=== PATIENT | male | born 1975 | race Caucasian/White ===

== ENCOUNTER 2020-01-05 11:52 | Outpatient (CLI) | payer OTHER, SELFPAY ==
[2020-01-08 12:40] LABS: Vitamin B1 12 nmol/L (8-30)
[2020-01-08 13:53] LABS: Alpha-Tocopherol 9.2 mg/L (5.7-19.9); Beta-Gamma Tocopherol 1.6 mg/L (<=4.3); Vitamin A 49 mcg/dL (38-98)
== END 2020-01-05 11:53 | disposition home or self-care (01) ==
LOC: ANHLAB 11:54
PROVIDERS: PCP Family Medicine; Visit Provider Family Medicine
DX: H53 Visual disturbances (principal)
CPT/HCPCS: 36415; 84207; 84425; 84446; 84590

== ENCOUNTER 2020-02-05 09:04 | Outpatient (CLI) | payer OTHER, SELFPAY ==
[2020-02-05 09:22] LABS: Basophils Absolute Auto 0.1 K/mm3 (0.0-0.1); Eosinophils Absolute Auto 0.6 K/mm3 (0-0.3); Eosinophils Percent Auto 7.3 % (0-4.4); Hemoglobin 15.2 g/dL (14.0-18.0); Immature Granulocyte Absolute 0.03 K/mm3 (0.00-0.031); Immature Granulocyte Percent A 0.4 % (0-0.5); Lymphocytes Percent Auto 33.2 % (18.3-44.2); Mean Corpuscular Hemoglobin 27.5 pg (26-34); Mean Corpuscular Volume 83.3 fl (80-100); Mean Platelet Volume 8.5 fl (7.4-10.4); Monocytes Absolute Auto 0.6 K/mm3 (0.1-0.6); Monocytes Percent Auto 7.8 % (2.6-8.5); Neutrophils Absolute Auto 3.9 K/mm3 (1.3-6.7); Neutrophils Percent Auto 50.3 % (45.5-73.1); Platelet Count Result 264 k/mm3 (150-375); Red Blood Count 5.52 M/mm3 (4.6-6.20); Red Cell Distribution Width 14.7 % (11.5-14.5); White Blood Count 7.8 K/mm3 (4.5-10.0)
[2020-02-05 09:35] LABS: Alanine Aminotransferase 23 U/L (4-50); Albumin Level 3.9 g/dL (3.5-5.1); Alkaline Phosphatase 73 U/L (38-126); Anion Gap 5 mmol/L (8-16); Aspartate Amino Transferase 28 U/L (17-59); Bilirubin,Total 0.2 mg/dL (0.2-1.3); Blood Urea Nitrogen 12 mg/dL (9-20); Calcium 8.8 mg/dL (8.4-10.2); Carbon Dioxide 28 mmol/L (22-30); Chloride 105 mmol/L (98-107); Estimated Glomerular Filt Rate > 60; Glucose 96 mg/dL (75-110); Potassium 3.8 mmol/L (3.4-5.0); Sodium 138 mmol/L (137-145)
== END 2020-02-05 09:05 | disposition home or self-care (01) ==
LOC: ANHLAB 09:05
PROVIDERS: PCP Family Medicine; Visit Provider Family Medicine
DX: K51.80 Other ulcerative colitis without complications (principal)
CPT/HCPCS: 36415; 80053; 85025

== ENCOUNTER 2020-02-21 09:55 | Outpatient (CLI) | payer OTHER, SELFPAY ==
[2020-02-21 10:59] LABS: CRP 0.6 mg/dL (<1.0)
[2020-02-21 11:09] LABS: Erythrocyte Sedimentation Rate 1 mm/hr (0-20)
[2020-02-21 11:43] LABS: Hepatitis B Surface Antigen Negative (Negative)
[2020-02-21 12:00] LABS: Hepatitis B Surface Anti Res Negative
[2020-02-24 21:16] LABS: Hepatitis B Core Ab Total Nonreactive (Nonreactive)
[2020-02-25 21:00] LABS: NIL 0.01 IU/mL; Quantiferon TB Plus, 1T NEGATIVE (NEGATIVE)
[2020-03-03 19:22] LABS: TPMT Activity 8
== END 2020-02-21 09:56 | disposition home or self-care (01) ==
PROVIDERS: Visit Provider Internal Medicine Gastroenterology
DX: K51.80 Other ulcerative colitis without complications (principal)
CPT/HCPCS: 36415; 82657; 85652; 86140; 86480; 86704; 86706; 87340

== ENCOUNTER 2020-05-18 00:59 | Outpatient (CLI) | payer OTHER, SELFPAY ==
[2020-05-18 20:15] LABS: SARS-CoV-2 RNA PCR Negative
== END 2020-05-18 01:00 | disposition home or self-care (01) ==
LOC: ANHCOVIDDT 01:00
PROVIDERS: Visit Provider Internal Medicine Gastroenterology
DX: Z01.818 Encounter for other preprocedural examination (principal); Z20.828 Contact with and (suspected) exposure to other viral communicable diseases
CPT/HCPCS: 87635; C9803; U0003

== ENCOUNTER 2020-05-21 01:22 | Day surgery (SDC) | payer OTHER, SELFPAY ==
[2020-05-15 11:29] VITALS: BMI 41.8
[2020-05-21 07:07] VITALS: BP 165/97; PULSE 86; RESP 22; TEMP 36.4; O2SAT 97
[2020-05-21] MEDS: LACTATED RINGERS 1,000 ML 150 ML IV CONT (07:21)
--- NOTE | 2020-05-21 07:33 | WPDANESEPPF ---
Anes - Initial Pre Proc Eval Procedure: Operation Date: 05/21/20 08:30 Proposed Procedures p Screening Colonoscopy - Rao Bean MD Date/Time: 05/21/20 07:33 Surgeon: Rao Bean MD Pre Op Diagnosis: Neoplasm Screening Patient Data Age: 44 Gender: M Height: 6 ft Weight: 180.4 kg Last Vital Signs Temp 36.4 C 05/21/20 07:07 Pulse 86 05/21/20 07:07 Resp 22 H 05/21/20 07:07 BP 165/97 H 05/21/20 07:07 Pulse Ox 97 05/21/20 07:07 Allergies Allergy/AdvReac Type Severity Reaction Status Date / Time No Known Allergies Allergy Verified 05/21/20 07:06 Home Medications Medication Instructions Recorded Confirmed Type sulfasalazine 500 mg tablet 1.5 gm PO BID #180 tablet 02/05/20 05/21/20 Rx furosemide 40 mg tablet 40 mg PO QAM #30 tablet 04/09/20 05/15/20 Rx [id number]-ywbkunvdogydm-zsvaujrf See Rx Instructions .ROUTE 05/13/20 05/15/20 Rx 50 mg-300 mg-40 mg capsule .COMPLEX #30 cap amlodipine 5 mg tablet See Rx Instructions .ROUTE 05/16/20 05/21/20 Rx .COMPLEX #90 tablet tizanidine 4 mg tablet See Rx Instructions .ROUTE 05/20/20 05/21/20 Rx .COMPLEX #20 tablet Patient hx anesthesia problems: none Family hx anesthesia problems: none PMFSH Past Medical History Medical History Knee osteoarthritis Red color blindness Screening for prostate cancer Family History Family History Grandparent Family history of coronary artery disease Mother Family history of coronary artery disease Other Asthma Depression Family history of arthritis Family history of heart disease in male family member before age 55 Social History Social History Smoking status: Never smoker Second hand tobacco smoke exposure: No Alcohol intake: current Substance use type: does not use Living arrangements: with family Spiritual care concerns: No Anes - Eval Final PreProcedure Day of Procedure 05/21/20 07:33 Patient weight: morbidly obese Heart: regular rate and rhythm Lungs: clear to auscultation Airway: Mallampati scale class II Neurological: alert and oriented Last oral intake: >/= 8 hours ASA classification: III Emergent: no Anesthetic plan: proceed Anesthesia type and monitoring: general GIVS and standard monitoring Informed Consent: The patient's anesthetic plan and its attendant risks and benefits were discussed with the patient/family/POA. Questions were solicited and answers provided to the satisfaction of the patient/family/POA.
--- NOTE | 2020-05-21 07:56 | PM.HPGS ---
History of Present Illness History of Present Illness Consent: Risks, benefits, and alternatives have been discussed and questions answered. Patient agrees to proceed with procedure. Chief complaint: Neoplasm Screening Narrative: Earl Santo is a 44 year old male with pancolitis since 14 yo, he just ran out of sulfasalazine but denies active symptoms now. Review of Systems Constitutional: Constitutional: Denies headache(s) and Denies weakness Eyes: Eyes: Denies blurry vision ENT: Reports Normal hearing present, Denies headache(s) and Denies neck pain Cardiovascular: Cardiovascular: Denies chest pain and Denies dyspnea Respiratory: Respiratory: Denies dyspnea Gastrointestinal: Gastrointestinal: Reports no additional gastrointestinal complaints Genitourinary: Genitourinary: Denies dysuria Musculoskeletal: Musculoskeletal: Denies neck pain Integumentary/Breasts: Skin/Breast: Denies dry skin Neurologic: Reports Normal hearing present, Denies headache(s) and Denies weakness Psychiatric: Psychiatric: Denies anxiety Endocrine: Endocrine: Denies change in body appearance Hematologic/Lymphatic: Hematologic/Lymphatic: Denies easy bleeding Allergic/Immunologic: Allergic/Immunologic: Denies urticaria PMFSH Past Medical History Medical History Knee osteoarthritis Red color blindness Screening for prostate cancer Family History Family History Grandparent Family history of coronary artery disease Mother Family history of coronary artery disease Other Asthma Depression Family history of arthritis Family history of heart disease in male family member before age 55 Social History Social History Smoking status: Never smoker Second hand tobacco smoke exposure: No Alcohol intake: current Substance use type: does not use Living arrangements: with family Spiritual care concerns: No Meds Home Medications and Allergies Home Medications Medication Instructions Recorded Confirmed Type sulfasalazine 500 mg tablet 1.5 gm PO BID #180 tablet 02/05/20 05/21/20 Rx furosemide 40 mg tablet 40 mg PO QAM #30 tablet 04/09/20 05/15/20 Rx [id number]-hgdpssbzkhfvl-prlectew See Rx Instructions .ROUTE 05/13/20 05/15/20 Rx 50 mg-300 mg-40 mg capsule .COMPLEX #30 cap amlodipine 5 mg tablet See Rx Instructions .ROUTE 05/16/20 05/21/20 Rx .COMPLEX #90 tablet tizanidine 4 mg tablet See Rx Instructions .ROUTE 05/20/20 05/21/20 Rx .COMPLEX #20 tablet Allergies Allergy/AdvReac Type Severity Reaction Status Date / Time No Known Allergies Allergy Verified 05/21/20 07:06 Vital Signs Vital Signs - 24 hr 05/21/20 07:07 Temperature 97.6 F Pulse Rate 86 Respiratory Rate 22 H Blood Pressure 165/97 H Pulse Oximetry 97 Exam Const: General: comfortable and no acute distress HENMT: General nose exam: Normal nares present Eyes: General: appearance normal, both eyes and all related structures Neck: Neck: no JVD Resp: Auscultation: clear to auscultation bilaterally Cardio: Rate: regular rate Rhythm: regular rhythm GI: Inspection: non-distended GI Palp: Yes Soft to palpation Skin: General skin exam: normal color Neuro: General: gait normal Speech: normal speech Extrem: General: normal to inspection Psych: Mental Status: mental status grossly normal Assessment and Plan Assessment and plan (1) Ulcerative colitis: Qualifiers: Ulcerative colitis location: other ulcerative colitis Digestive disease complication type: without complication Qualified Code(s): K51.80 - Other ulcerative colitis without complications Code(s): K51.90 - Ulcerative colitis, unspecified, without complications Status: Acute Assessment and Plan: colonoscopy with biopsies to assess activity score and dysplasia, etc
[2020-05-21 08:18] VITALS: BP 116/72; PULSE 73; RESP 19; O2SAT 97
[2020-05-21 08:28] VITALS: BP 118/81; PULSE 87; RESP 22; O2SAT 95
[2020-05-21 08:38] VITALS: BP 119/74; PULSE 78; RESP 16; O2SAT 97
== END 2020-05-21 08:47 | disposition home or self-care (01) ==
PROVIDERS: Visit Provider Internal Medicine Gastroenterology
PROC: 0DJD8ZZ Inspection of Lower Intestinal Tract, Via Natural or Artificial Opening Endoscopic (ICD-10-PCS; CPT 45378; principal; 2020-05-21 08:30)
DX: Z12.11 Encounter for screening for malignant neoplasm of colon (principal); K51.00 Ulcerative (chronic) pancolitis without complications; K63.5 Polyp of colon; E66.01 Morbid (severe) obesity due to excess calories; K64.8 Other hemorrhoids; Z68.43 Body mass index [BMI] 50.0-59.9, adult; M17.10 Unilateral primary osteoarthritis, unspecified knee
CPT/HCPCS: 45380; 45385; 88305; J2704; J7120

== ENCOUNTER 2020-09-12 09:30 | Outpatient (CLI) | payer OTHER, SELFPAY ==
[2020-09-12 09:52] LABS: Hematocrit 47.8 % (42.0-52.0); Hemoglobin 16.1 g/dL (14.0-18.0); Mean Corpuscular HGB Conc 33.7 g/dl (32-36); Mean Corpuscular Hemoglobin 29.2 pg (26-34); Mean Corpuscular Volume 86.6 fl (80-100); Mean Platelet Volume 8.2 fl (7.4-10.4); Platelet Count Result 232 k/mm3 (150-375); Red Blood Count 5.52 M/mm3 (4.6-6.20); White Blood Count 6.3 K/mm3 (4.5-10.0)
[2020-09-12 10:14] LABS: Alanine Aminotransferase 19 U/L (4-50); Albumin Level 4.2 g/dL (3.5-5.1); Alkaline Phosphatase 81 U/L (38-126); Anion Gap 6 mmol/L (8-16); Aspartate Amino Transferase 26 U/L (17-59); Bilirubin,Total 0.4 mg/dL (0.2-1.3); Blood Urea Nitrogen 15 mg/dL (9-20); CRP 1.1 mg/dL (<1.0); Calcium 9.2 mg/dL (8.4-10.2); Carbon Dioxide 31 mmol/L (22-30); Chloride 102 mmol/L (98-107); Estimated Glomerular Filt Rate 55; Glucose 120 mg/dL (75-110); Potassium 3.6 mmol/L (3.4-5.0); Sodium 139 mmol/L (137-145)
[2020-09-12 10:17] LABS: Erythrocyte Sedimentation Rate 13 mm/hr (0-20)
== END 2020-09-12 09:31 | disposition home or self-care (01) ==
PROVIDERS: Visit Provider Internal Medicine Gastroenterology
DX: K51.80 Other ulcerative colitis without complications (principal)
CPT/HCPCS: 36415; 80053; 85027; 85652; 86140

== ENCOUNTER 2020-10-28 14:29 | Outpatient (CLI) | payer OTHER, SELFPAY ==
[2020-10-28 15:33] LABS: Hematocrit 46.6 % (42.0-52.0); Hemoglobin 15.5 g/dL (14.0-18.0); Mean Corpuscular HGB Conc 33.3 g/dl (32-36); Mean Corpuscular Hemoglobin 28.5 pg (26-34); Mean Corpuscular Volume 85.8 fl (80-100); Mean Platelet Volume 8.7 fl (7.4-10.4); Platelet Count Result 209 k/mm3 (150-375); Red Blood Count 5.43 M/mm3 (4.6-6.20); Red Cell Distribution Width 14.3 % (11.5-14.5); White Blood Count 6.2 K/mm3 (4.5-10.0)
[2020-10-28 15:47] LABS: Anion Gap 4 mmol/L (8-16); Blood Urea Nitrogen 14 mg/dL (9-20); Calcium 9.1 mg/dL (8.4-10.2); Carbon Dioxide 32 mmol/L (22-30); Chloride 102 mmol/L (98-107); Estimated Glomerular Filt Rate 59; Glucose 101 mg/dL (75-110); Magnesium 1.9 mg/dL (1.6-2.3); Potassium 4.1 mmol/L (3.4-5.0); Sodium 138 mmol/L (137-145)
[2020-10-28 15:55] LABS: NT Pro B Type Natriuretic Pept 242 pg/mL (5-100)
== END 2020-10-28 14:30 | disposition home or self-care (01) ==
PROVIDERS: Visit Provider Family Medicine
DX: I50.32 Chronic diastolic (congestive) heart failure (principal)
CPT/HCPCS: 36415; 80048; 83735; 83880; 85027

== ENCOUNTER 2021-03-17 09:38 | Outpatient (CLI) | payer OTHER, SELFPAY ==
[2021-03-17 09:51] LABS: Hematocrit 46.4 % (42.0-52.0); Hemoglobin 15.2 g/dL (14.0-18.0); Mean Corpuscular HGB Conc 32.8 g/dl (32-36); Mean Corpuscular Hemoglobin 29.3 pg (26-34); Mean Corpuscular Volume 89.6 fl (80-100); Mean Platelet Volume 8.3 fl (7.4-10.4); Platelet Count Result 233 k/mm3 (150-375); Red Blood Count 5.18 M/mm3 (4.6-6.20); Red Cell Distribution Width 13.9 % (11.5-14.5); White Blood Count 6.6 K/mm3 (4.5-10.0)
[2021-03-17 10:09] LABS: Alanine Aminotransferase 20 U/L (4-50); Albumin Level 4.2 g/dL (3.5-5.1); Alkaline Phosphatase 70 U/L (38-126); Anion Gap 8 mmol/L (8-16); Aspartate Amino Transferase 24 U/L (17-59); Bilirubin,Total 0.4 mg/dL (0.2-1.3); Blood Urea Nitrogen 14 mg/dL (9-20); CRP 1.3 mg/dL (<1.0); Calcium 9.2 mg/dL (8.4-10.2); Carbon Dioxide 27 mmol/L (22-30); Chloride 103 mmol/L (98-107); Estimated Glomerular Filt Rate > 60; Glucose 112 mg/dL (65-110); Potassium 3.7 mmol/L (3.4-5.0); Sodium 138 mmol/L (137-145)
[2021-03-17 10:26] LABS: Erythrocyte Sedimentation Rate 14 mm/hr (0-20)
== END 2021-03-17 09:39 | disposition home or self-care (01) ==
LOC: ANHLAB 09:40
PROVIDERS: Visit Provider Nurse Practitioner Family
DX: K51.80 Other ulcerative colitis without complications (principal)
CPT/HCPCS: 36415; 80053; 85027; 85652; 86140

== ENCOUNTER → 2021-04-05 00:47 | Outpatient (CLI) | payer OTHER, SELFPAY ==
[2021-04-05 18:23] LABS: SARS-CoV-2 RNA PCR Negative
== END ==
PROVIDERS: Visit Provider Internal Medicine Gastroenterology
DX: Z01.812 Encounter for preprocedural laboratory examination (principal); Z20.822 Contact with and (suspected) exposure to COVID-19
CPT/HCPCS: C9803; U0003; U0005

== ENCOUNTER 2021-04-08 02:18 | Day surgery (SDC) | payer OTHER, SELFPAY ==
[2021-03-21 13:41] VITALS: BMI 58.6
[2021-04-08 09:12] VITALS: BP 170/96; PULSE 79; RESP 18; TEMP 36.3; O2SAT 96; BMI 56.7
[2021-04-08] MEDS: LACTATED RINGERS 1,000 ML 150 ML IV CONT (09:24)
--- NOTE | 2021-04-08 09:41 | WPDHPUPDATE1 ---
History and Physical Update Update Date/Time: 04/08/21 09:41 History and Physical has been reviewed, including an updated exam of the patient. There are NO changes in the patient's condition. Risks, benefits, and alternatives have been discussed and questions answered. Patient agrees to proceed with procedure.
--- NOTE | 2021-04-08 09:49 | WPDANESEPPF ---
Anes - Initial Pre Proc Eval Procedure: Operation Date: 04/08/21 10:30 Proposed Procedures p Colonoscopy - Rao Bean MD Date/Time: 04/08/21 09:49 Surgeon: Rao Bean MD Pre Op Diagnosis: ulcerative colitis Patient Data Age: 45 Gender: M Height: 1.83 m Weight: 189.7 kg Last Vital Signs Temp 36.3 C L 04/08/21 09:12 Pulse 79 04/08/21 09:12 Resp 18 04/08/21 09:12 BP 170/96 H 04/08/21 09:12 Pulse Ox 96 04/08/21 09:12 Allergies Allergy/AdvReac Type Severity Reaction Status Date / Time No Known Allergies Allergy Verified 04/08/21 09:10 Home Medications Medication Instructions Recorded Confirmed Type sulfasalazine 500 mg tablet 1.5 g PO BID #180 tablet 05/21/20 04/08/21 Rx furosemide 40 mg tablet 40 mg PO QAM #30 tablet 12/19/20 04/08/21 Rx tizanidine 4 mg tablet See Rx Instructions .ROUTE 12/19/20 04/08/21 Rx .COMPLEX #60 tablet amlodipine 5 mg tablet See Rx Instructions .ROUTE 02/11/21 04/08/21 Rx .COMPLEX #90 tablet bvpydulruw-klpbysyrlikdd-fvykzkuk See Rx Instructions .ROUTE 03/07/21 04/08/21 Rx 50 mg-300 mg-40 mg capsule .COMPLEX #30 cap omeprazole 20 mg capsule,delayed 20 mg PO DAILY #30 cap 03/17/21 04/08/21 Rx release Patient hx anesthesia problems: none Family hx anesthesia problems: none Results Review: All pre-operative results and documents have been reviewed as part of the pre-operative evaluation. [facility] Past Medical History Medical History (Updated 04/08/21 @ 09:52 by Erlin Jacome MD) Anxiety CAD (coronary artery disease) Choroidal neovascular membrane of right eye Chronic diastolic congestive heart failure Essential (primary) hypertension GERD (gastroesophageal reflux disease) Knee osteoarthritis Morbid obesity Obesity, morbid, BMI 50 or higher Red color blindness Screening for prostate cancer Ulcerative colitis Family History Family History Grandparent Family history of coronary artery disease Mother Family history of coronary artery disease COPD (chronic obstructive pulmonary disease) Bipolar 1 disorder Hypertension Father Acute myocardial infarction Sibling No problems noted. Other Asthma Depression Family history of arthritis Family history of heart disease in male family member before age 55 Social History Social History Second hand tobacco smoke exposure: Yes Alcohol intake: current Substance use: never Substance use type: does not use Gender identity (if verbalized by the patient): Male Spiritual care concerns: No Anes - Eval Final PreProcedure Day of Procedure 04/08/21 09:49 Patient weight: super morbidly obese Heart: regular rate and rhythm Lungs: clear to auscultation and normal air movement Airway: Mallampati scale class II Neurological: alert and oriented Last oral intake: >/= 8 hours ASA classification: IV Emergent: no Anesthetic plan: proceed Anesthesia type and monitoring: general GIVS Results Review: All pre-operative results and documents have been reviewed as part of the pre-operative evaluation. Informed Consent: The patient's anesthetic plan and its attendant risks and benefits were discussed with the patient/family/POA. Questions were solicited and answers provided to the satisfaction of the patient/family/POA.
[2021-04-08 10:21] VITALS: BP 138/94; PULSE 72; RESP 15; O2SAT 96
[2021-04-08 10:31] VITALS: BP 140/97; PULSE 74; RESP 18; O2SAT 97
[2021-04-08 10:41] VITALS: BP 139/96; PULSE 72; RESP 16; O2SAT 95
== END 2021-04-08 10:49 | disposition home or self-care (01) ==
PROVIDERS: Visit Provider Internal Medicine Gastroenterology
PROC: 0DJD8ZZ Inspection of Lower Intestinal Tract, Via Natural or Artificial Opening Endoscopic (ICD-10-PCS; CPT 45378; principal; 2021-04-08 10:30)
DX: K51.00 Ulcerative (chronic) pancolitis without complications (principal); K64.8 Other hemorrhoids; K21.9 Gastro-esophageal reflux disease without esophagitis; K52.89 Other specified noninfective gastroenteritis and colitis; F41.9 Anxiety disorder, unspecified; I25.10 Atherosclerotic heart disease of native coronary artery without angina pectoris; I11.0 Hypertensive heart disease with heart failure; I50.9 Heart failure, unspecified; E66.01 Morbid (severe) obesity due to excess calories; Z68.43 Body mass index [BMI] 50.0-59.9, adult; K63.5 Polyp of colon
CPT/HCPCS: 45380; 88305; J7120; Q9968

== ENCOUNTER 2021-05-06 18:11 | Outpatient (CLI) | payer OTHER, SELFPAY ==
--- NOTE | ~2021-05-06 | XR_ITS ---
XR hip BI 2V w AP pelvis 05/06/2021 18:39 Indication: Hip pain Procedure: AP pelvis and 3 views each Comparison: No prior studies for comparison. Findings: There is mild right and moderate left osteoarthritis of the hips. No fracture, subluxation or dislocation. Pelvic rings are intact. Sacral foramen are symmetric. Impression: 1: Bilateral osteoarthritis of the hips, left greater than right. Reviewed, dictated and finalized at location B. 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
== END 2021-05-06 18:12 | disposition home or self-care (01) ==
LOC: ANHIMG 18:17
PROVIDERS: PCP Family Medicine; Visit Provider Family Medicine
DX: M16.0 Bilateral primary osteoarthritis of hip (principal)
CPT/HCPCS: 73521

== ENCOUNTER 2021-09-30 14:22 | Outpatient (CLI) | payer OTHER, SELFPAY ==
[2021-09-30 15:22] LABS: Hematocrit 47.3 % (42.0-52.0); Hemoglobin 15.6 g/dL (14.0-18.0); Mean Corpuscular Hemoglobin 27.7 pg (26-34); Mean Platelet Volume 8.3 fl (7.4-10.4); Platelet Count Result 186 k/mm3 (150-375); Red Blood Count 5.63 M/mm3 (4.6-6.20); Red Cell Distribution Width 15.5 % (11.5-14.5); White Blood Count 5.5 K/mm3 (4.5-10.0)
[2021-09-30 15:35] LABS: Alanine Aminotransferase 25 U/L (4-50); Albumin Level 4.1 g/dL (3.5-5.1); Alkaline Phosphatase 85 U/L (38-126); Anion Gap 5 mmol/L (8-16); Aspartate Amino Transferase 31 U/L (17-59); Bilirubin,Total 0.3 mg/dL (0.2-1.3); Blood Urea Nitrogen 15 mg/dL (9-20); Calcium 8.6 mg/dL (8.4-10.2); Carbon Dioxide 29 mmol/L (22-30); Chloride 102 mmol/L (98-107); Estimated Glomerular Filt Rate > 60; Glucose 107 mg/dL (65-110); Potassium 3.5 mmol/L (3.4-5.0); Sodium 136 mmol/L (137-145)
[2021-09-30 15:49] LABS: Erythrocyte Sedimentation Rate 3 mm/hr (0-20)
== END 2021-09-30 14:23 | disposition home or self-care (01) ==
LOC: ANHLAB 14:24
PROVIDERS: PCP Family Medicine; Visit Provider Internal Medicine Gastroenterology
DX: K51.80 Other ulcerative colitis without complications (principal)
CPT/HCPCS: 36415; 80053; 85027; 85652; 86140

== ENCOUNTER 2021-10-30 15:05 | Outpatient (CLI) | payer OTHER, SELFPAY ==
[2021-10-30 16:12] LABS: Hematocrit 48.3 % (42.0-52.0); Mean Corpuscular HGB Conc 33.1 g/dl (32-36); Mean Corpuscular Hemoglobin 28.4 pg (26-34); Mean Corpuscular Volume 85.8 fl (80-100); Mean Platelet Volume 8.7 fl (7.4-10.4); Platelet Count Result 187 k/mm3 (150-375); Red Blood Count 5.63 M/mm3 (4.6-6.20); Red Cell Distribution Width 16.3 % (11.5-14.5); White Blood Count 5.5 K/mm3 (4.5-10.0)
[2021-10-30 16:59] LABS: Anion Gap 6 mmol/L (8-16); Blood Urea Nitrogen 15 mg/dL (9-20); Calcium 8.4 mg/dL (8.4-10.2); Carbon Dioxide 27 mmol/L (22-30); Chloride 105 mmol/L (98-107); Estimated Glomerular Filt Rate > 60; Glucose 109 mg/dL (65-110); Magnesium 2.2 mg/dL (1.6-2.3); Potassium 4.3 mmol/L (3.4-5.0); Sodium 138 mmol/L (137-145)
[2021-10-30 18:44] LABS: Vitamin D 25 Hydroxy < 12.8 ng/mL
== END 2021-10-30 15:06 | disposition home or self-care (01) ==
LOC: ANHLAB 15:06
PROVIDERS: PCP Family Medicine; Visit Provider Family Medicine
DX: I50.32 Chronic diastolic (congestive) heart failure (principal); E55.9 Vitamin D deficiency, unspecified
CPT/HCPCS: 36415; 80048; 82306; 83735; 85027

== ENCOUNTER 2021-11-06 09:29 | Outpatient (CLI) | payer OTHER, SELFPAY ==
--- NOTE | ~2021-11-06 | XR_ITS ---
EXAMINATION: XR lg joint inject/asp w image DATE: 11/06/2021 10:48 INDICATION: Right hip arthritis. TECHNIQUE: The procedure including the risks, benefits, and alternatives was discussed with the patie nt. Risks discussed included bleeding and infection. The patient understood the risks and agreed to p roceed. The skin overlying the right hip joint was prepped and draped in usual sterile fashion. Ane sthetic was administered with 1% lidocaine subcutaneously. A 22 G needle was advanced under fluorosc opic guidance into the joint. Subsequently, injectate consisting of 2 mL 0.5% bupivacaine and 1 mL 8 0 mg/mL Depo-Medrol was instilled. The needle was removed and the entry site was cleaned and dressed . There were no immediate complications. Fluoroscopy exposure time was 0.0 minutes. The total number of images was 1. FINDINGS: Real-time fluoroscopy demonstrates the needle in the right hip joint. Patient's pain prior to procedure:3/10. Patient's pain following the procedure: 0/10. IMPRESSION: 1. Fluoroscopy guided right hip joint injection of local anesthetic and steroid with decrease in the patient's presenting pain. Reviewed, dictated and finalized at location A.
--- NOTE | ~2021-11-06 | XR_ITS ---
. EXAMINATION: XR lg joint inject/asp add DATE: 11/06/2021 10:49 INDICATION: Left hip arthritis. TECHNIQUE: The procedure including the risks, benefits, and alternatives was discussed with the patie nt. Risks discussed included bleeding and infection. The patient understood the risks and agreed to p roceed. The skin overlying the left hip joint was prepped and draped in usual sterile fashion. Anes thetic was administered with 1% lidocaine subcutaneously. A 22 G needle was advanced under fluorosco pic guidance into the joint. Subsequently, injectate consisting of 2 mL 0.5% bupivacaine and 1 mL 80 mg/mL Depo-Medrol was instilled. The needle was removed and the entry site was cleaned and dressed. There were no immediate complications. Fluoroscopy exposure time was 0.0 minutes. The total number of images was 1. FINDINGS: Real-time fluoroscopy demonstrates the needle in the left hip joint. Patient's pain prior t o procedure:11/14. Patient's pain following the procedure: 08/14. IMPRESSION: 1. Fluoroscopy guided left hip joint injection of local anesthetic and steroid with decrease in the p atient's presenting pain. Reviewed, dictated and finalized at location A. IMPRESSION: 1. Fluoroscopy guided left hip joint injection of local anesthetic and steroid with decrease in the patient's presenting pain.
== END 2021-11-06 09:30 | disposition home or self-care (01) ==
PROVIDERS: PCP Family Medicine; Visit Provider Nurse Practitioner Family
DX: M25.552 Pain in left hip (principal); M25.551 Pain in right hip
CPT/HCPCS: 20610; 77002; J1040

== ENCOUNTER 2021-12-17 12:37 | Outpatient (CLI) | payer OTHER, SELFPAY ==
--- NOTE | 2021-12-17 12:56 | ECHO_ITS ---
Patient Info Name: Earl Santo Age: 46 years : 1975 Gender: Male Ht: 72 in Wt: 415 lbs BSA: 3.20 m2 HR: 76 bpm BP: 132 / 101 mmHg Technical Quality: Fair Exam Date: 12/17/2021 1:19 PM Exam Location: [facility] Patient Status: Outpatient Admit Date: 12/17/2021 Staff Ordering Physician: Tiago Geiger MD Jet Mechanic: Samuel Cagle RDCS, RT Attending Provider: Tiago Geiger MD Referring Physician: Fely DENNIS; Exam Type: CA echo doppler color flow Study Info Indications I50.32 - Chronic diastolic (congestive) heart failure Complete two-dimensional, color flow and Doppler transthoracic echocardiogram is performed. Summary 1. Complete two-dimensional, color flow and Doppler transthoracic echocardiogram is performed. 2. Left ventricular chamber dimension is normal. 3. There is moderately increased left ventricular wall thickness. 4. Left ventricular systolic function is normal, estimated at 55-60%. 5. The left ventricular diastolic function is grade I diastolic dysfunction. 6. E/e' 6 is not elevated. Left Ventricle E/e' 6 is not elevated. Left ventricular chamber dimension is normal. Left ventricular systolic function is normal, estimated at 55-60%. There is moderately increased left ventricular wall thickness. The left ventricular diastolic function is grade I diastolic dysfunction. Right Ventricle Right ventricular systolic function is normal based on normal TAPSE 2.3 cm. Right ventricular chamber dimension is not well visualized. Left Atria Left atrial chamber dimension is normal. Right Atria Right atrial chamber dimension is normal. Aortic Valve The aortic valve is trileaflet. There is no aortic valve stenosis. There is no aortic valve regurgitation. Pulmonic Valve There is no pulmonic regurgitation. Mitral Valve There is no mitral valve stenosis. There is no mitral valve regurgitation. Tricuspid Valve There is no tricuspid valve regurgitation. Pericardium/Pleural There is no pericardial effusion. Inferior Vena Cava Normal inferior vena cava with >50% collapse upon inspiration consistent with normal right atrial pressure, 5 mmHg. Aorta The aortic root size at the sinus of Valsalva is normal. Left Ventricular Outflow Tract Name Value Normal LVOT 2D LVOT Diameter 2.3 cm LVOT Doppler LVOT Peak Gradient 3 mmHg LVOT Mean Gradient 2 mmHg LVOT VTI 18 cm LVOT VTI/AV VTI Ratio 0.9 LVOT Stroke Volume 72 ml LVOT CO 5.6 l/min LVOT CI 1.7 l/min/m2 Mitral Valve Name Value Normal MV Doppler MV Decel Rains 190 cm/s2 MV PHT 77 ms
== END 2021-12-17 12:38 | disposition home or self-care (01) ==
PROVIDERS: PCP Family Medicine; Visit Provider Family Medicine
DX: I50.32 Chronic diastolic (congestive) heart failure (principal)
CPT/HCPCS: 93306

== ENCOUNTER 2022-02-25 07:27 | Outpatient (CLI) | payer OTHER, SELFPAY ==
--- NOTE | ~2022-02-25 | XR_ITS ---
EXAMINATION: XR lg joint inject/asp w image DATE: 02/25/2022 08:24 INDICATION: Left hip arthritis. TECHNIQUE: A time-out was performed to verify the patient's name, date of , and procedure to b e performed. The procedure including the risks, benefits, and alternatives was discussed with the pat ient. Risks discussed included bleeding and infection. The patient understood the risks and agreed to proceed. The skin overlying the left hip joint was prepped and draped in usual sterile fashion. An esthetic was administered with 1% lidocaine subcutaneously. A 22 G needle was advanced under fluoros copic guidance into the joint. Subsequently, injectate consisting of 2 mL 0.5% bupivacaine and 1 mL 80 mg/mL Depo-Medrol was instilled. The needle was removed and the entry site was cleaned and dresse d. There were no immediate complications. Fluoroscopy exposure time was 0.1 minutes. The total numbe r of images was 1. FINDINGS: Real-time fluoroscopy demonstrates the needle in the left hip joint. Patient's pain prior t o procedure:01/14. Patient's pain following the procedure: 08/14. IMPRESSION: 1. Fluoroscopy guided left hip joint injection of local anesthetic and steroid with decrease in the p atient's presenting pain. Reviewed, dictated and finalized at location A. IMPRESSION: 1. Fluoroscopy guided left hip joint injection of local anesthetic and steroid with decrease in the patient's presenting pain.
--- NOTE | ~2022-02-25 | XR_ITS ---
. EXAMINATION: XR lg joint inject/asp add DATE: 02/25/2022 08:27 INDICATION: Right hip arthritis. TECHNIQUE: A time-out was performed to verify the patient's name, date of , and procedure to b e performed. The procedure including the risks, benefits, and alternatives was discussed with the pat ient. Risks discussed included bleeding and infection. The patient understood the risks and agreed to proceed. The skin overlying the right hip joint was prepped and draped in usual sterile fashion. A nesthetic was administered with 1% lidocaine subcutaneously. A 22 G needle was advanced under fluoro scopic guidance into the joint. Subsequently, injectate consisting of 2 mL 0.5% bupivacaine and 1 mL 80 mg/mL Depo-Medrol was instilled. The needle was removed and the entry site was cleaned and dress ed. There were no immediate complications. Fluoroscopy exposure time was 0.1 minutes. The total numb er of images was 1. FINDINGS: Real-time fluoroscopy demonstrates the needle in the right hip joint. Patient's pain prior to procedure:8/10. Patient's pain following the procedure: 3/10. IMPRESSION: 1. Fluoroscopy guided right hip joint injection of local anesthetic and steroid with decrease in the patient's presenting pain. Reviewed, dictated and finalized at location A.
== END 2022-02-25 07:28 | disposition home or self-care (01) ==
PROVIDERS: PCP Family Medicine; Visit Provider Nurse Practitioner Family
DX: M16.0 Bilateral primary osteoarthritis of hip (principal)
CPT/HCPCS: 20610; 77002; J1040

== ENCOUNTER 2022-03-11 13:03 | Outpatient (CLI) | payer OTHER, SELFPAY ==
[2022-03-11 13:50] LABS: Anion Gap 11 mmol/L (8-16); Blood Urea Nitrogen 15 mg/dL (9-20); Calcium 9.2 mg/dL (8.4-10.2); Carbon Dioxide 28 mmol/L (22-30); Chloride 99 mmol/L (98-107); Estimated Glomerular Filt Rate > 60; Glucose 128 mg/dL (65-110); Magnesium 2.1 mg/dL (1.6-2.3); Potassium 3.4 mmol/L (3.4-5.0); Sodium 138 mmol/L (137-145)
== END 2022-03-11 13:04 | disposition home or self-care (01) ==
LOC: ANHLAB 13:04
PROVIDERS: PCP Family Medicine; Visit Provider Family Medicine
DX: I50.32 Chronic diastolic (congestive) heart failure (principal)
CPT/HCPCS: 36415; 80048; 83735

== ENCOUNTER 2022-04-13 09:34 | Outpatient (CLI) | payer OTHER, SELFPAY ==
[2022-04-13 09:56] LABS: Hematocrit 45.9 % (42.0-52.0); Hemoglobin 15.6 g/dL (14.0-18.0); Mean Corpuscular Hemoglobin 29.7 pg (26-34); Mean Corpuscular Volume 87.3 fl (80-100); Mean Platelet Volume 8.6 fl (7.4-10.4); Platelet Count Result 247 k/mm3 (150-375); Red Blood Count 5.26 M/mm3 (4.6-6.20); Red Cell Distribution Width 14.1 % (11.5-14.5); White Blood Count 7.8 K/mm3 (4.5-10.0)
[2022-04-13 10:11] LABS: Alanine Aminotransferase 25 U/L (6-50); Albumin Level 4.2 g/dL (3.5-5.1); Alkaline Phosphatase 87 U/L (38-126); Anion Gap 13 mmol/L (8-16); Aspartate Amino Transferase 26 U/L (17-59); Bilirubin,Total 0.5 mg/dL (0.2-1.3); Blood Urea Nitrogen 15 mg/dL (9-20); CRP 1.8 mg/dL (<1.0); Calcium 8.6 mg/dL (8.4-10.2); Carbon Dioxide 27 mmol/L (22-30); Chloride 99 mmol/L (98-107); Estimated Glomerular Filt Rate > 60; Glucose 116 mg/dL (65-110); Potassium 3.2 mmol/L (3.4-5.0); Sodium 139 mmol/L (137-145)
[2022-04-13 12:38] LABS: Erythrocyte Sedimentation Rate 3 mm/hr (0-20)
== END 2022-04-13 09:35 | disposition home or self-care (01) ==
LOC: ANHLAB 09:35
PROVIDERS: PCP Family Medicine; Visit Provider Internal Medicine Gastroenterology
DX: K51.80 Other ulcerative colitis without complications (principal)
CPT/HCPCS: 36415; 80053; 85027; 85652; 86140

== ENCOUNTER 2022-04-29 01:13 | Day surgery (SDC) | payer OTHER, SELFPAY ==
[2022-04-14 14:54] VITALS: BMI 57.0
[2022-04-29 08:15] VITALS: BP 154/94; PULSE 68; RESP 18; TEMP 36.3; O2SAT 99; BMI 56.2
[2022-04-29] MEDS: LACTATED RINGERS 1,000 ML 150 ML IV CONT (08:26)
--- NOTE | 2022-04-29 08:40 | WPDANESEPPF ---
Anes - Initial Pre Proc Eval Procedure: Operation Date: 04/29/22 09:45 Proposed Procedures p Colonoscopy - Rao Bean MD Date/Time: 04/29/22 08:40 Surgeon: Rao Bean MD Pre Op Diagnosis: ulcerative colitis Patient Data Age: 46 Gender: M Height: 1.83 m Weight: 188.3 kg Last Vital Signs Temp 36.3 C L 04/29/22 08:15 Pulse 68 04/29/22 08:15 Resp 18 04/29/22 08:15 BP 154/94 H 04/29/22 08:15 Pulse Ox 99 04/29/22 08:15 O2 Del Method Room Air 04/29/22 08:15 Allergies Allergy/AdvReac Type Severity Reaction Status Date / Time metolazone AdvReac Intermediate Vomiting Verified 04/29/22 08:13 tramadol AdvReac Intermediate Headache Verified 04/29/22 08:13 Home Medications Medication Instructions Recorded Confirmed Type carvedilol 6.25 mg tablet 6.25 mg PO Q12H #60 tabs 02/03/22 04/23/22 Rx furosemide 80 mg tablet 80 mg PO QAM #30 tabs 03/03/22 04/23/22 Rx amlodipine 5 mg tablet 5 mg PO DAILY 04/14/22 04/23/22 History nfurxqjkya-bqcxzplszwoem-ckfmrvza 1 cap PO Q8H PRN Headache 04/14/22 04/23/22 History 50 mg-300 mg-40 mg capsule (Fioricet) sulfasalazine 500 mg tablet 1,500 mg PO BID 04/14/22 04/23/22 History duloxetine 30 mg capsule,delayed 30 mg PO DAILY #30 caps 04/23/22 04/29/22 Rx release Patient hx anesthesia problems: none Family hx anesthesia problems: none Results Review: All pre-operative results and documents have been reviewed as part of the pre-operative evaluation. [facility] Past Medical History Medical History (Updated 04/23/22 @ 14:39 by Tiago Geiger MD) Anxiety Arthritis Bilateral hip pain Bilateral shoulder tendinopathy BMI 50.0-59.9, adult Choroidal neovascular membrane of right eye Chronic diastolic congestive heart failure Chronic headaches Essential (primary) hypertension GERD (gastroesophageal reflux disease) Knee osteoarthritis Morbid obesity Obesity, morbid, BMI 50 or higher Osteoarthritis, hip, bilateral Polyarticular arthritis Red color blindness Screening for prostate cancer Tensor fascia анна syndrome Trochanteric bursitis, right hip Ulcerative colitis Vision abnormalities Family History Family History Grandparent Family history of coronary artery disease Mother Family history of coronary artery disease COPD (chronic obstructive pulmonary disease) Bipolar 1 disorder Hypertension Father Acute myocardial infarction Sibling Hypertension Unknown Hypertension Other Asthma Depression Family history of arthritis Family history of heart disease in male family member before age 55 Social History Social History Smoking status: Never smoker Second hand tobacco smoke exposure: Yes Alcohol intake: former Substance use: never Substance use type: does not use Living arrangements: with family Gender identity (if verbalized by the patient): Male Spiritual care concerns: No Anes - Eval Final PreProcedure Day of Procedure 04/29/22 08:40 Patient weight: super morbidly obese Heart: regular rate and rhythm Lungs: clear to auscultation and normal air movement Airway: Mallampati scale class II Neurological: alert and oriented Last oral intake: >/= 8 hours ASA classification: III Emergent: no Anesthetic plan: proceed Anesthesia type and monitoring: general GIVS Results Review: All pre-operative results and documents have been reviewed as part of the pre-operative evaluation. Informed Consent: The patient's anesthetic plan and its attendant risks and benefits were discussed with the patient/family/POA. Questions were solicited and answers provided to the satisfaction of the patient/family/POA.
--- NOTE | 2022-04-29 09:16 | WPDHPUPDATE1 ---
History and Physical Update Update Date/Time: 04/29/22 09:16 History and Physical has been reviewed, including an updated exam of the patient. There are NO changes in the patient's condition. Risks, benefits, and alternatives have been discussed and questions answered. Patient agrees to proceed with procedure.
[2022-04-29] MEDS: METHYLENE BLUE 0.5% INJ 10 ML AMPULE 20 ML IRRIGATION (09:23)
[2022-04-29 09:45] VITALS: BP 120/79; PULSE 62; RESP 18; O2SAT 96
[2022-04-29 09:55] VITALS: BP 117/76; PULSE 58; RESP 18; O2SAT 96
[2022-04-29 10:05] VITALS: BP 122/83; PULSE 58; RESP 18; O2SAT 98
== END 2022-04-29 10:22 | disposition home or self-care (01) ==
PROVIDERS: PCP Family Medicine; Visit Provider Internal Medicine Gastroenterology
PROC: 0DJD8ZZ Inspection of Lower Intestinal Tract, Via Natural or Artificial Opening Endoscopic (ICD-10-PCS; CPT 45378; principal; 2022-04-29 09:45)
DX: K51.90 Ulcerative colitis, unspecified, without complications (principal); K63.5 Polyp of colon; I11.0 Hypertensive heart disease with heart failure; I50.32 Chronic diastolic (congestive) heart failure; K21.9 Gastro-esophageal reflux disease without esophagitis; E66.01 Morbid (severe) obesity due to excess calories; Z68.43 Body mass index [BMI] 50.0-59.9, adult
CPT/HCPCS: 45380; 45385; 88305; J2704; J7120; Q9968

== ENCOUNTER 2022-08-20 07:58 | Outpatient (RCR) | payer OTHER, SELFPAY | END 2022-09-03 13:48 | disposition home or self-care (01) | LOC: ANHDMC 07:58 | PROVIDERS: PCP Family Medicine; Visit Provider Nurse Practitioner Family | DX: E11.9 Type 2 diabetes mellitus without complications (principal); E66.9 Obesity, unspecified; Z71.89 Other specified counseling | CPT/HCPCS: G0108 ==

== ENCOUNTER 2022-08-31 11:14 | Outpatient (CLI) | payer OTHER, SELFPAY ==
--- NOTE | ~2022-08-31 | XR_ITS ---
. EXAMINATION: XR lg joint inject/asp add DATE: 08/31/2022 12:34 INDICATION: Left hip arthritis. TECHNIQUE: A time-out was performed to verify the patient's name, date of , and procedure to b e performed. The procedure including the risks, benefits, and alternatives was discussed with the pat ient. Risks discussed included bleeding and infection. The patient understood the risks and agreed to proceed. The skin overlying the left hip joint was prepped and draped in usual sterile fashion. An esthetic was administered with 1% lidocaine subcutaneously. A 22 G needle was advanced under fluoros copic guidance into the joint. Subsequently, injectate consisting of 2 mL 0.5% bupivacaine and 1 mL 80 mg/mL Depo-Medrol was instilled. The needle was removed and the entry site was cleaned and dresse d. There were no immediate complications. Fluoroscopy exposure time was 0.1 minutes. The total numbe r of images was 1. FINDINGS: Real-time fluoroscopy demonstrates the needle in the left hip joint. Patient's pain prior t o procedure:6.5/10. Patient's pain following the procedure: 0/10. IMPRESSION: 1. Fluoroscopy guided left hip joint injection of local anesthetic and steroid with decrease in the p atient's presenting pain. Reviewed, dictated and finalized at location A. IMPRESSION: 1. Fluoroscopy guided left hip joint injection of local anesthetic and steroid with decrease in the patient's presenting pain.
--- NOTE | ~2022-08-31 | XR_ITS ---
EXAMINATION: XR lg joint inject/asp w image DATE: 08/31/2022 12:34 INDICATION: Right hip arthritis. TECHNIQUE: A time-out was performed to verify the patient's name, date of , and procedure to b e performed. The procedure including the risks, benefits, and alternatives was discussed with the pat ient. Risks discussed included bleeding and infection. The patient understood the risks and agreed to proceed. The skin overlying the right hip joint was prepped and draped in usual sterile fashion. A nesthetic was administered with 1% lidocaine subcutaneously. A 22 G needle was advanced under fluoro scopic guidance into the joint. Subsequently, injectate consisting of 2 mL 0.5% bupivacaine and 1 mL 80 mg/mL Depo-Medrol was instilled. The needle was removed and the entry site was cleaned and dress ed. There were no immediate complications. Fluoroscopy exposure time was 0.1 minutes. The total numb er of images was 1. FINDINGS: Real-time fluoroscopy demonstrates the needle in the right hip joint. Patient's pain prior to procedure:6.5/10. Patient's pain following the procedure: 0/10. IMPRESSION: 1. Fluoroscopy guided right hip joint injection of local anesthetic and steroid with decrease in the patient's presenting pain. Reviewed, dictated and finalized at location A.
== END 2022-08-31 11:15 | disposition home or self-care (01) ==
PROVIDERS: PCP Family Medicine; Visit Provider Nurse Practitioner Family
DX: M16.0 Bilateral primary osteoarthritis of hip (principal)
CPT/HCPCS: 20610; 77002; J1040

== ENCOUNTER 2022-09-25 08:20 | Outpatient (CLI) | payer OTHER, SELFPAY ==
[2022-09-25 08:49] LABS: Hemoglobin 15.5 g/dL (14.0-18.0); Mean Corpuscular HGB Conc 33.7 g/dl (32-36); Mean Corpuscular Volume 86.1 fl (80-100); Mean Platelet Volume 8.2 fl (7.4-10.4); Platelet Count Result 213 k/mm3 (150-375); Red Blood Count 5.34 M/mm3 (4.6-6.20); Red Cell Distribution Width 14.8 % (11.5-14.5); White Blood Count 4.7 K/mm3 (4.5-10.0)
[2022-09-25 09:18] LABS: Erythrocyte Sedimentation Rate 16 mm/hr (0-20)
[2022-09-25 10:08] LABS: Alanine Aminotransferase 24 U/L (6-50); Alkaline Phosphatase 82 U/L (38-126); Anion Gap 6 mmol/L (8-16); Aspartate Amino Transferase 26 U/L (17-59); Bilirubin,Total 0.5 mg/dL (0.2-1.3); Blood Urea Nitrogen 11 mg/dL (9-20); CRP 1.3 mg/dL (<1.0); Calcium 8.4 mg/dL (8.4-10.2); Carbon Dioxide 34 mmol/L (22-30); Chloride 99 mmol/L (98-107); Estimated Glomerular Filt Rate > 60; Glucose 98 mg/dL (65-110); Potassium 3.6 mmol/L (3.4-5.0); Sodium 139 mmol/L (137-145)
== END 2022-09-25 08:21 | disposition home or self-care (01) ==
LOC: ANHLAB 08:21
PROVIDERS: PCP Family Medicine; Visit Provider Internal Medicine Gastroenterology
DX: K51.90 Ulcerative colitis, unspecified, without complications (principal); I10 Essential (primary) hypertension; E66.01 Morbid (severe) obesity due to excess calories
CPT/HCPCS: 36415; 80053; 85027; 85652; 86140

== ENCOUNTER 2023-02-11 08:33 | Outpatient (CLI) | payer OTHER, SELFPAY ==
--- NOTE | ~2023-02-11 | XR_ITS ---
EXAMINATION: XR lg joint inject/asp w image, XR lg joint inject/asp add DATE: 02/11/2023 10:01 INDICATION: Bilateral hip arthritis with pain TECHNIQUE: A time-out was performed to verify the patient's name, date of , and procedure to b e performed. The procedure including the risks, benefits, and alternatives was discussed with the pat ient. Risks discussed included bleeding and infection. The patient understood the risks and agreed to proceed. Attention was first turned to the right hip. The skin overlying the right hip joint was pre pped and draped in usual sterile fashion. Anesthetic was administered with 1% lidocaine subcutaneous ly. A 5 inch 22 G needle was advanced under fluoroscopic guidance into the joint. Injection of 1 mL of Omnipaque 240 confirmed intra-articular position of the needle. Subsequently, injectate consisti ng of 3 mL of a 2:1 mixture of 0.5% bupivacaine: 80 mg/mL Depo-Medrol for a total dosage of 80 mg Dep o-Medrol was instilled. Washout of contrast was seen confirming intra-articular administration. The n eedle was removed and the entry site was cleaned and dressed. Attention was then turned to the left hip. The skin overlying the right hip joint was prepped and renny ped in usual sterile fashion. Anesthetic was administered with 1% lidocaine subcutaneously. A 5 inc h 22 G needle was advanced under fluoroscopic guidance into the joint. Injection of 1 mL of Omnipaqu e 240 confirmed intra-articular position of the needle. Subsequently, injectate consisting of 3 mL o f a 2:1 mixture of 0.5% bupivacaine: 80 mg/mL Depo-Medrol for a total dosage of 80 mg Depo-Medrol was instilled. Washout of contrast was seen confirming intra-articular administration. The needle was re moved and the entry site was cleaned and dressed. There were no immediate complications. Fluoroscopy exposure time 4 both joint injections was 0.1 minutes. The total number of images was 3. FINDINGS: Real-time fluoroscopy demonstrates the needle in first the right hip joint and subsequently in the left hip joint. Patient's pain prior to procedure:07/17. Patient's pain following the procedu re: . IMPRESSION: 1. Successful left and right hip joint injections of local anesthetic and steroid with decrease in th e patient's presenting pain. Reviewed, dictated and finalized at location A. IMPRESSION: 1. Successful left and right hip joint injections of local anesthetic and stero id with decrease in the patient's presenting pain.
== END 2023-02-11 08:34 | disposition home or self-care (01) ==
PROVIDERS: PCP Family Medicine; Visit Provider Nurse Practitioner Family
DX: M16.0 Bilateral primary osteoarthritis of hip (principal)
CPT/HCPCS: 20610; 77002; J1040; Q9966

== ENCOUNTER 2023-02-25 10:52 | Outpatient (CLI) | payer OTHER, SELFPAY ==
[2023-02-25 11:13] LABS: Hematocrit 48.3 % (42.0-52.0); Mean Corpuscular HGB Conc 33.1 g/dl (32-36); Mean Corpuscular Hemoglobin 29.9 pg (26-34); Mean Corpuscular Volume 90.1 fl (80-100); Mean Platelet Volume 8.2 fl (7.4-10.4); Platelet Count Result 219 k/mm3 (150-375); Red Blood Count 5.36 M/mm3 (4.6-6.20); Red Cell Distribution Width 14.4 % (11.5-14.5); White Blood Count 8.4 K/mm3 (4.5-10.0)
[2023-02-25 11:25] LABS: Alanine Aminotransferase 25 U/L (6-50); Albumin Level 4.3 g/dL (3.5-5.1); Alkaline Phosphatase 84 U/L (38-126); Anion Gap 7 mmol/L (8-16); Aspartate Amino Transferase 27 U/L (17-59); Bilirubin,Total 0.6 mg/dL (0.2-1.3); Blood Urea Nitrogen 15 mg/dL (9-20); Calcium 8.7 mg/dL (8.4-10.2); Carbon Dioxide 29 mmol/L (22-30); Chloride 102 mmol/L (98-107); Estimated Glomerular Filt Rate > 60; Glucose 106 mg/dL (65-110); Potassium 3.8 mmol/L (3.4-5.0); Sodium 138 mmol/L (137-145)
[2023-02-25 11:57] LABS: Hemoglobin A1C 5.4 % (<5.7)
[2023-02-25 12:19] LABS: MALB Creatinine Ratio < 3.0 mg/g (0-30); Microalbumin Urine Random < 6.0 mg/L (0-16.7)
[2023-02-25 12:56] LABS: Vitamin D 25 Hydroxy < 12.8 ng/mL
[2023-02-26 18:08] LABS: Prostate Specific Antigen 1.4 ng/mL (< OR = 4.0)
== END 2023-02-25 10:53 | disposition home or self-care (01) ==
LOC: ANHLAB 10:53
PROVIDERS: PCP Family Medicine; Visit Provider Family Medicine
DX: E55.9 Vitamin D deficiency, unspecified (principal); I10 Essential (primary) hypertension; I50.32 Chronic diastolic (congestive) heart failure; Z12.5 Encounter for screening for malignant neoplasm of prostate; E11.9 Type 2 diabetes mellitus without complications
CPT/HCPCS: 36415; 80053; 82043; 82306; 83036; 84153; 84443; 85027; G0103

== ENCOUNTER 2023-05-05 08:52 | Outpatient (CLI) | payer OTHER, SELFPAY ==
[2023-05-05 09:51] LABS: NT Pro B Type Natriuretic Pept 79 pg/mL (19.9-100)
[2023-05-05 09:59] LABS: Potassium 2.7 mmol/L (3.4-5.0)
[2023-05-05 10:00] LABS: Anion Gap 8 mmol/L (8-16); Blood Urea Nitrogen 11 mg/dL (9-20); Carbon Dioxide 35 mmol/L (22-30); Chloride 94 mmol/L (98-107); Estimated Glomerular Filt Rate > 60; Glucose 137 mg/dL (65-110); Magnesium 2.1 mg/dL (1.6-2.3); Sodium 137 mmol/L (137-145)
[2023-05-05 10:45] LABS: Vitamin D 25 Hydroxy 34.6 ng/mL
== END 2023-05-05 08:53 | disposition home or self-care (01) ==
LOC: ANHLAB 08:53
PROVIDERS: PCP Family Medicine; Visit Provider Family Medicine
DX: E55.9 Vitamin D deficiency, unspecified (principal); I50.32 Chronic diastolic (congestive) heart failure
CPT/HCPCS: 36415; 80048; 82306; 83735; 83880

== ENCOUNTER 2023-05-10 07:45 | Outpatient (CLI) | payer OTHER, SELFPAY ==
[2023-05-10 10:15] LABS: Potassium 2.8 mmol/L (3.4-5.0)
== END 2023-05-10 07:46 | disposition home or self-care (01) ==
LOC: ANHLAB 07:46
PROVIDERS: PCP Family Medicine; Visit Provider Nurse Practitioner Family
DX: E87.6 Hypokalemia (principal)
CPT/HCPCS: 36415; 83735; 84132

== ENCOUNTER 2023-05-13 08:53 | Outpatient (CLI) | payer OTHER, SELFPAY ==
[2023-05-13 12:14] LABS: Anion Gap 10 mmol/L (8-16); Blood Urea Nitrogen 18 mg/dL (9-20); Calcium 9.3 mg/dL (8.4-10.2); Carbon Dioxide 34 mmol/L (22-30); Chloride 93 mmol/L (98-107); Estimated Glomerular Filt Rate 59; Glucose 96 mg/dL (65-110); Potassium 2.5 mmol/L (3.4-5.0); Sodium 137 mmol/L (137-145)
== END 2023-05-13 08:54 | disposition home or self-care (01) ==
LOC: ANHLAB 08:54
PROVIDERS: PCP Family Medicine; Visit Provider Family Medicine
DX: E87.6 Hypokalemia (principal)
CPT/HCPCS: 36415; 80048

== ENCOUNTER 2023-05-17 07:17 | Outpatient (CLI) | payer OTHER, SELFPAY ==
[2023-05-17 07:55] LABS: Anion Gap 5 mmol/L (8-16); Blood Urea Nitrogen 14 mg/dL (9-20); Carbon Dioxide 30 mmol/L (22-30); Chloride 101 mmol/L (98-107); Estimated Glomerular Filt Rate > 60; Glucose 114 mg/dL (65-110); Potassium 3.2 mmol/L (3.4-5.0); Sodium 136 mmol/L (137-145)
== END 2023-05-17 07:18 | disposition home or self-care (01) ==
LOC: ANHLAB 07:19
PROVIDERS: PCP Family Medicine; Visit Provider Family Medicine
DX: E87.6 Hypokalemia (principal)
CPT/HCPCS: 36415; 80048

== ENCOUNTER 2023-05-20 07:30 | Outpatient (CLI) | payer OTHER, SELFPAY ==
[2023-05-20 08:33] LABS: Potassium 3.8 mmol/L (3.4-5.0)
== END 2023-05-20 07:31 | disposition home or self-care (01) ==
LOC: ANHLAB 07:32
PROVIDERS: PCP Family Medicine; Visit Provider Internal Medicine Gastroenterology
DX: E87.6 Hypokalemia (principal)
CPT/HCPCS: 36415; 84132

== ENCOUNTER 2023-05-24 00:55 | Day surgery (SDC) | payer OTHER, SELFPAY ==
[2023-05-06 14:46] VITALS: BMI 59.3
--- NOTE | 2023-05-20 14:40 | PC.NURSE ---
Potassium lab value within normal range today of 3.8 on 05-20-2023. Patient aware of normal result, will continue with planned colonoscopy 05/24/2023
[2023-05-24 13:25] VITALS: BP 169/98; PULSE 75; RESP 20; TEMP 36.2; O2SAT 99; BMI 58.3
[2023-05-24 13:52] LABS: Glucose Point of Care 105 mg/dl (65-105)
[2023-05-24] MEDS: LACTATED RINGERS 1,000 ML 150 ML IV CONT (13:52)
--- NOTE | 2023-05-24 13:53 | WPDANESEPPF ---
Anes - Initial Pre Proc Eval Procedure: Operation Date: 05/24/23 15:00 Proposed Procedures p Colonoscopy - Rao Bean MD Date/Time: 05/24/23 13:53 Surgeon: Rao Bean MD Pre Op Diagnosis: Dysplasia Patient Data Age: 47 Gender: M Height: 1.8 m Weight: 189.8 kg Last Vital Signs Temp 36.2 C L 05/24/23 13:25 Pulse 75 05/24/23 13:25 Resp 20 05/24/23 13:25 BP 169/98 H 05/24/23 13:25 Pulse Ox 99 05/24/23 13:25 O2 Del Method Room Air 05/24/23 13:25 Allergies Allergy/AdvReac Type Severity Reaction Status Date / Time metolazone AdvReac Intermediate Vomiting Verified 05/24/23 13:34 tramadol AdvReac Intermediate Headache Verified 05/24/23 13:34 Home Medications Medication Instructions Recorded Confirmed Type sulfasalazine 500 mg tablet See Rx Instructions .Route 06/22/22 05/24/23 Rx .COMPLEX #180 tabs coaesogpwf-pnfpbdrrzeeuu-pztmbwmm 1 cap PO Q8H PRN Headache #60 caps 02/08/23 05/24/23 Rx 50 mg-300 mg-40 mg capsule (Fioricet) pantoprazole 40 mg tablet,delayed 40 mg PO QHS #90 tabs 02/14/23 05/24/23 Rx release furosemide 80 mg tablet 80 mg PO QAM #90 tabs 03/12/23 05/24/23 Rx hydrocodone 5 mg-acetaminophen 325 1 tablet PO Q8H PRN pain #60 tabs 05/04/23 05/24/23 Rx mg tablet chlorthalidone 25 mg tablet 12.5 mg PO DAILY #30 tabs 05/05/23 05/24/23 Rx amlodipine 5 mg tablet 5 mg PO DAILY #90 tabs 05/13/23 05/24/23 Rx carvedilol 6.25 mg tablet 6.25 mg PO Q12H #60 tabs 05/13/23 05/24/23 Rx dulaglutide 0.75 mg/0.5 mL 0.75 mg (0.5 mL) subcut WEEKLY #2 05/13/23 05/24/23 Rx subcutaneous pen injector mL (Trulicity) potassium chloride 20 mEq 40 meq PO BID #120 tabs 05/13/23 05/24/23 Rx tablet,extended release Laboratory Tests 05/24/23 13:45 POC Capillary Glucose 105 mg/dl (65-105) Patient hx anesthesia problems: none Family hx anesthesia problems: none Results Review: All pre-operative results and documents have been reviewed as part of the pre-operative evaluation. [facility] Past Medical History Medical History Anxiety Arthritis Bilateral hip pain Bilateral shoulder tendinopathy BMI 50.0-59.9, adult Choroidal neovascular membrane of right eye Chronic diastolic congestive heart failure Chronic headaches Diabetes type 2, controlled Essential (primary) hypertension GERD (gastroesophageal reflux disease) Hyperglycemia Knee osteoarthritis Morbid obesity Obesity, morbid, BMI 50 or higher Osteoarthritis, hip, bilateral Polyarticular arthritis Red color blindness Screening for prostate cancer Tensor fascia анна syndrome Trochanteric bursitis, left hip Trochanteric bursitis, right hip Ulcerative colitis Vision abnormalities Family History Family History Grandparent Family history of coronary artery disease Mother Family history of coronary artery disease COPD (chronic obstructive pulmonary disease) Bipolar 1 disorder Hypertension Father Acute myocardial infarction Sibling Hypertension Asthma Other Depression Family history of arthritis Family history of heart disease in male family member before age 55 Social History Social History Smoking status: Never smoker Second hand tobacco smoke exposure: Yes Alcohol intake: former Substance use: never Substance use type: does not use Lack of Transportation: No Lack of Food: Never True Current Housing: I Have Housing Concerned About Future Housing: No Difficulty Paying Gas/Electric Bills: No Difficulty Paying for Meds: No Currently Unemployed: No Education: Bachelor's Degree Difficulty w/ Childcare or Family Care: No Living arrangements: with family Occupation/Education: unemployed Additional occupation/education comm
--- NOTE | 2023-05-24 14:19 | PM.HPGS ---
History of Present Illness History of Present Illness Consent: Risks, benefits, and alternatives have been discussed and questions answered. Patient agrees to proceed with procedure. Chief complaint: Dysplasia Narrative: Earl Santo is a 47 year old male here for colonoscopy, he ahs UC pancolitis first dx age 14, now is taking sulfasalazine 1.5 grams (was on humira that took for a year worked well but developed antibodies, then started on entyvio but also took 2 doses and he decided to discontinue because developed cough which he though secondary to entyvio). He is getting yearly colonoscopies last time with chromoendoscopy 04/2022 without any more colitis no dysplasia, he thinks that under control Review of Systems Constitutional: Constitutional: Denies headache(s) and Denies weakness Eyes: Eyes: Denies blurry vision ENT: Reports Normal hearing present, Denies headache(s) and Denies neck pain Cardiovascular: Cardiovascular: Denies chest pain and Denies dyspnea Respiratory: Respiratory: Denies dyspnea Gastrointestinal: Gastrointestinal: Reports no additional gastrointestinal complaints Genitourinary: Genitourinary: Denies dysuria Musculoskeletal: Musculoskeletal: Denies neck pain Integumentary/Breasts: Skin/Breast: Denies dry skin Neurologic: Reports Normal hearing present, Denies headache(s) and Denies weakness Psychiatric: Psychiatric: Denies anxiety Endocrine: Endocrine: Denies change in body appearance Hematologic/Lymphatic: Hematologic/Lymphatic: Denies easy bleeding Allergic/Immunologic: Allergic/Immunologic: Denies urticaria PMFSH Past Medical History Medical History Anxiety Arthritis Bilateral hip pain Bilateral shoulder tendinopathy BMI 50.0-59.9, adult Choroidal neovascular membrane of right eye Chronic diastolic congestive heart failure Chronic headaches Diabetes type 2, controlled Essential (primary) hypertension GERD (gastroesophageal reflux disease) Hyperglycemia Knee osteoarthritis Morbid obesity Obesity, morbid, BMI 50 or higher Osteoarthritis, hip, bilateral Polyarticular arthritis Red color blindness Screening for prostate cancer Tensor fascia анна syndrome Trochanteric bursitis, left hip Trochanteric bursitis, right hip Ulcerative colitis Vision abnormalities Family History Family History Grandparent Family history of coronary artery disease Mother Family history of coronary artery disease COPD (chronic obstructive pulmonary disease) Bipolar 1 disorder Hypertension Father Acute myocardial infarction Sibling Hypertension Asthma Other Depression Family history of arthritis Family history of heart disease in male family member before age 55 Social History Social History Smoking status: Never smoker Second hand tobacco smoke exposure: Yes Alcohol intake: former Substance use: never Substance use type: does not use Lack of Transportation: No Lack of Food: Never True Current Housing: I Have Housing Concerned About Future Housing: No Difficulty Paying Gas/Electric Bills: No Difficulty Paying for Meds: No Currently Unemployed: No Education: Bachelor's Degree Difficulty w/ Childcare or Family Care: No Living arrangements: with family 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
[2023-05-24] MEDS: METHYLENE BLUE 0.5% INJ 10 ML AMPULE 20 ML IRRIGATION (14:29)
[2023-05-24 14:49] VITALS: BP 130/83; PULSE 71; RESP 21; O2SAT 99
[2023-05-24 14:59] VITALS: BP 121/73; PULSE 70; RESP 16; O2SAT 98
[2023-05-24 15:09] VITALS: BP 116/66; PULSE 67; RESP 20; O2SAT 98
== END 2023-05-24 15:17 | disposition home or self-care (01) ==
PROVIDERS: PCP Family Medicine; Visit Provider Internal Medicine Gastroenterology
PROC: 0DJD8ZZ Inspection of Lower Intestinal Tract, Via Natural or Artificial Opening Endoscopic (ICD-10-PCS; CPT 45378; principal; 2023-05-24 15:00)
DX: K51.90 Ulcerative colitis, unspecified, without complications (principal); Z79.85 Long-term (current) use of injectable non-insulin antidiabetic drugs; E11.9 Type 2 diabetes mellitus without complications; K21.9 Gastro-esophageal reflux disease without esophagitis; I11.0 Hypertensive heart disease with heart failure; I50.32 Chronic diastolic (congestive) heart failure; E66.01 Morbid (severe) obesity due to excess calories; Z68.43 Body mass index [BMI] 50.0-59.9, adult
CPT/HCPCS: 45380; 82948; 88305; J2704; J7120; Q9968

== ENCOUNTER 2024-07-20 00:49 | Day surgery (SDC) | payer OTHER, SELFPAY ==
[2024-07-03 13:13] VITALS: BMI 53.8
--- OUTSIDE RECORDS SUMMARY | 2024-07-20 00:52 | XMS_ITS | Clinical Summary ---
Author Organization [facility] Address [address] [place] [address] Care Team Providers Care Staffing Account Manager Name Role Phone Tiago Geiger MD Primary Care Provider [phone] Allergies No known active allergies Medications amLODIPine (NORVASC) 5 mg tablet TK 1 T PO QD 0 12/27/2018 Active aspirin 81 mg chewable tablet MEAT COUNTER WORKER ONE T QAM 0 01/03/2019 Active budesonide EC (ENTOCORT EC) 3 mg 24 hr capsule TK 2 CS PO QD 0 12/30/2018 Active furosemide (LASIX) 40 mg tablet TK 1 T PO D 0 01/03/2019 Active POTASSIUM CHLORIDE ER 20 mEq CR tablet TK 2 TS PO D 0 01/12/2019 Active raNITIdine (ZANTAC) 300 mg tablet Take 300 mg by mouth 2 (two) times a day 11/22/2018 Active sulfaSALAzine (AZULFIDINE) 500 mg tablet Take 1,500 mg by mouth 2 (two) times a day 01/02/2019 Active Active Problems Problem Noted Date Diagnosed Date Chronic diastolic congestive heart failure (CMS/ HCC) 02/02/2019 Essential hypertension 02/02/2019 Ulcerative pancolitis with complication (CMS/HCC ) 01/19/2019 High risk medications (not anticoagulants) long- term use 01/19/2019 Medical History Medical History Date Comments Ulcerative colitis (HCC) Hypertension Diastolic dysfunction Family History Medical History Relation Name Comments Heart attack Father Cancer Maternal Grandmother Heart disease Maternal Grandmother Heart disease Mother Heart failure Mother Lung cancer Other Arrhythmia Sister Hypertension Sister Relation Name Status Comments Father in his 60' s Maternal Grandmother Mother Alive Other Sister Alive Social History Tobacco Use Types Packs/Day Years Used Date Smoking Tobacco: Never Smokeless Tobacco: Never Tobacco Cessation:Counseling Given: Yes Alcohol Use Standard Drinks/Week Comments Never 0 (1 standard drink = 0.6 oz pur e alcohol) AUDIT-C Answer Date Recorded Frequency of Alcohol Consumption Never 01/19/2019 Average Number of Drinks Not on file 019 Frequency of Binge Drinking Not on file 01/05 Personal Safety Answer Date Recorded Getting School Help Needed Not on file 08/20 Sex and Gender Information Value Date Recorded Sex Assigned at Not on file Legal Sex Male 12:29 PM DIRECTOR INTERNAL 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 Gender Identity Male 02/01/2019 8:28 PM CDT Sexual Orientation Straight 02/01/2019 8: 28 PM CDT Obstetrics History Last Filed Vital Signs Vital Sign Reading Time Taken Comments Blood Pressure 122/82 02/02/2019 10:58 AM CDT Pulse 63 02/02/2019 10:58 AM CDT Temperature 37.4 C (99.3 F) 01/19/2019 3:42 PM CDT Respiratory Rate - - Oxygen Saturation 96% 02/02/2019 10: 58 AM CDT Inhaled Oxygen Concentration - - Weight 155.4 kg (342 lb 11.2 oz) 2018 10:58 AM CDT Height 182.9 cm (6') 02/02/2019 10:58 AM CDT Body Mass Index 46.48 02/02/2019 10:58 AM CDT Plan of Treatment Not on file Insurance [facility] Care Teams Staffing Account Manager Relationship Specialty Start Date End Date Tiago Geiger MD PCP - General Family Medicine 01/03/19
--- OUTSIDE RECORDS SUMMARY | 2024-07-20 00:52 | XMS_ITS | Clinical Summary ---
Author Organization [facility] Address [address] [place] [address] Care Team Providers Care Specialty Manufacturing Supervisor Name Role Phone Tiago Geiger MD Primary Care Provider [phone] Rao Bean MD Unavailable [phone] Source Comments [facility],non-owned Affiliates and Associated Physician Practices is amultiple site organization consisting of ambulatory clinics and hospital sitesin [place], [place], [place] and [place]. This disclosure is being madepursuant to the Care Everywhere program and may not contain all information available regarding this patient. Last updated 18.[facility] [employer] [facility] Allergies Active Allergy Reactions Criticality Noted Date Comments Metolazone Nausea and/or Vomiting 10/21/2022 Tramadol Headache 10/21/2022 Medications * Be aware that medications may not be up to date on this document. Alwaysverify current medications with the patient. Medication Sig Dispensed Refills Start Date End Date Status amLODIPine (NORVASC) 5 MG tablet TK 1 T PO QD 12/27/2018 Active furosemide (LASIX) 40 MG tablet 02/12/2020 Active sulfaSALAzine (AZULFIDINE) 500 MG tablet Take 1 (one) tablet by mouth 2 times daily 05/21/2020 Active butalbital-acetaminop hen-caffeine (Fioricet) 50-300-40 MG capsule TAKE 1 CAPSULE BY MOUTH EVERY 8 HOURS NEEDED FOR HEADACHE OR PAIN 11/23/2022 Active carvedilol (Coreg) 6.25 MG tablet TAKE 1 TABLET BY MOUTH EVERY 12 HOURS WITH FOOD 11/16/2022 Active DULoxetine (Cymbalta) 30 MG capsule Take 1 (one) capsule by mouth once daily 05/21/2022 Active famotidine (Pepcid) 40 MG tablet 10/05/2023 Active Trulicity 1.5 MG/0.5ML injection 10/05/2023 Active Active Problems Problem Noted Date Diagnosed Date Diabetes type 2, controlled 07/24/2022 Chronic diastolic congestive heart failure 02/02 Essential hypertension 02/02/2019 Ulcerative pancolitis with complication 01/20/20 19 Family History Medical History Relation Name Comments Arthritis - Osteo Brother Hypertension Brother Cancer - Other Maternal Grandmother Glaucoma Maternal Grandmother Arthritis - Osteo Mother Asthma Mother CAD (Coronary Artery Disease) Mother COPD - Chronic Obstructive Pulmonary Disease Mother Depression Mother Hyperlipidemia Mother Hypertension Mother Thyroid Disease Mother Arthritis - Osteo Sister Asthma Sister Depression Sister Hypertension Sister Relation Name Status Comments Brother Maternal Grandmother Mother Sister Social History Tobacco Use Types Packs/Day Years Used Date Smoking Tobacco: Never Smokeless Tobacco: Never Alcohol Use Standard Drinks/Week Comments Never 0 (1 standard drink = 0.6 oz pur e alcohol) AUDIT-C Answer Date Recorded Q1: How often do you have a drink containing alc ohol? Never 02/13/2020 Average Number of Drinks Not on file 020 Frequency of Binge Drinking Not on file 01/2020 Sex and Gender Information Value Date Recorded Sex Assigned at Not on file Gender Identity Not on file Sexual Orientation Not on file Plan of Treatment Upcoming Encounters Date Type Department Care Team (Late st Contact Info) Description 09/25/2024 1:00 PM CDT Office Visit [facility] - Ophthalmology [address] [place] [phone] Rochelle Zepeda MD [address] [place] [address] [place] [id number] Health Maintenance Due Date Last Done Comments COLOGUARD (AGES 45-75) - COLON CA SCREENING 1974 COLON MONITORING 1974 COLONOSCOPY - COLON CA SCREENING 1974 CT COLONOGRAPHY - COLON CA SCREENING 1974 Colorectal Cancer Screening 1974 FIT - COLON CA SCREENING 1974 FLEX SIG - COLON CA SCREENING 1974 HIV SCREENING 1989 HEPATITIS C SCREENING 08/20/1992 DIABETES-SERUM CREATININE 1992 DTAP/TDAP/TD VACCINES (1 - Tdap) 1993 HEPATITIS B VACCINE (1 of 3 - 19+ 3-dose series) 1993 DIABETES-STATIN 2014 DIABETES-FOOT EXAM WITH MONOFILAMENT 11/29/2023 DIABETES-HGB A1C 11/29/2023 COVID-19 VACCINE ( - season) 2024 INFLUENZA VACCINE (#1) 2024 05/18/2019, 2013 DEPRESSION SCREENING 06/07/2024 DIABETES - URINE PROTEIN SCREENING 06/07/2024 ZOSTER VACCINE (1 of 2) 2024 DIABETES RETINOPATHY SCREENING 01/09/2026 01/10/2024, 11/29/2023, 11/30/2022, Additional history exists HIB VACCINE Aged Out No longer eligi ble based on patient's age to complete this topic HPV VACCINE Aged Out No longer eligi ble based on patient's age to complete this topic MENINGOCOCCAL (Group B) VACCINE Aged Out No longer eligible based on patient's age to complete this topic MENINGOCOCCAL VACCINE Aged Out No hansa oc eligible based on patient's age to complete this topic Care Teams Specialty Manufacturing Supervisor Relationship Specialty Start Date End Date Tiago Geiger MD [address] [place] [address] PCP - General 10/20/17 Rao Bean MD [address] [place] [address] Incinerator Plant Supervisor Hospitalist 06/11/20
--- OUTSIDE RECORDS SUMMARY | 2024-07-20 00:52 | XMS_ITS | Patient Health Summary ---
Author Organization [facility] Address [address] [place] [address] Care Team Providers Care Director Of Vocational Training Name Role Phone Tiago Geiger MD Primary Care Provider [phone] Rao Bean MD Unavailable [phone] Note from [facility],non-owned Affiliates and Associated Physician Practices is amultiple site organization consisting of ambulatory clinics and hospital sitesin [place], [place], [place] and [place]. This disclosure is being madepursuant to the Care Everywhere program and may not contain all information available regarding this patient. Last updated 18.[facility] Allergies * Metolazone(Nausea and/or Vomiting) * Tramadol(Headache) Medications * Be aware that medications may not be up to date on this document. Alwaysverify current medications with the patient. * amLODIPine (NORVASC) 5 MG tablet(Started 12/27/2018) TK 1 T PO QD * furosemide (LASIX) 40 MG tablet(Started 02/12/2020) * sulfaSALAzine (AZULFIDINE) 500 MG tablet(Started 05/21/2020) Take 1 (one) tablet by mouth 2 times daily * xybvzsyixb-eevozxozwodtp-zlbbzqsj (Fioricet) 50-300-40 MG capsule(Started 11/23/2022) TAKE 1 CAPSULE BY MOUTH EVERY 8 HOURS NEEDED FOR HEADACHE OR PAIN * carvedilol (Coreg) 6.25 MG tablet(Started 11/16/2022) TAKE 1 TABLET BY MOUTH EVERY 12 HOURS WITH FOOD * DULoxetine (Cymbalta) 30 MG capsule(Started 05/21/2022) Take 1 (one) capsule by mouth once daily * famotidine (Pepcid) 40 MG tablet(Started 10/05/2023) * Trulicity 1.5 MG/0.5ML injection(Started 10/05/2023) Active Problems Problem Noted Date Diagnosed Date Diabetes type 2, controlled 07/24/2022 Chronic diastolic congestive heart failure 02/02 Essential hypertension 02/02/2019 Ulcerative pancolitis with complication 01/20/20 19 Social History Tobacco Use Types Packs/Day Years [...] on file Sexual Orientation Not on file Procedures * RETINAL ANALYSIS OCT(Performed 01/10/2024) Performed for Choroidal neovascular membrane of right eye * RETINAL ANALYSIS OCT(Performed 11/29/2023) Performed for Choroidal neovascular membrane of right eye, Central serous chorioretinopathy of right eye * RETINAL ANALYSIS OCT(Performed 11/30/2022) Performed for Choroidal neovascular membrane of both eyes * OPH OCT TEST SLU(Performed 01/16/2022) Performed for CNVM (choroidal neovascular membrane), right * OPH OCT TEST SLU(Performed 07/18/2021) Performed for CNVM (choroidal neovascular membrane), right * OPH OCT TEST SLU(Performed 03/19/2021) Performed for CNVM (choroidal neovascular membrane), right * OPH OCT TEST SLU(Performed 01/17/2021) Performed for CNVM (choroidal neovascular membrane), right * OPH OCT TEST SLU(Performed 12/06/2020) Performed for CNVM (choroidal neovascular membrane), right, Central serous chorioretinopathy of right eye * IL INJ INTRAVITREAL PHARMCOLOGIC RT(Performed 10/30/2020) Performed for CNVM (choroidal neovascular membrane), right * OPH OCT TEST SLU(Performed 10/30/2020) Performed for CNVM (choroidal neovascular membrane), right * OPH OCT TEST SLU(Performed 09/27/2020) Performed for CNVM (choroidal neovascular membrane), right * IL INJ INTRAVITREAL PHARMCOLOGIC RT(Performed 08/28/2020) Performed for CNVM (choroidal neovascular membrane), right * OPH OCT TEST SLU(Performed 08/28/2020) Performed for CNVM (choroidal neovascular membrane), right * IL INJ INTRAVITREAL PHARMCOLOGIC RT(Performed 07/31/2020) 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, CNVM (choroidal neovascular membrane),right * OPH OCT TEST SLU(Performed 07/31/2020) 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 * IL INJ INTRAVITREAL PHARMCOLOGIC RT(Performed 06/11/2020) Performed for Choroidal neovascular membrane of right eye * OPH OCT TEST SLU(Performed 06/11/2020) 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 * IL INJ INTRAVITREAL PHARMCOLOGIC RT(Performed 04/30/2020) Performed for Choroidal neovascular membrane of right eye * OPH OCT TEST SLU(Performed 04/30/2020) Performed for Choroidal neovascular membrane of right eye * OPH OCT TEST SLU(Performed 04/23/2020) 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 * OPH OCT TEST SLU(Performed 04/23/2020) 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 * OPH FLUORESCEIN ANGIOGRAPHY TRANSIT TEST SLU(Performed 04/09/2020) 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 * OPH OCT TEST SLU(Performed 04/09/2020) 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 OCT OD: Focal area of parafoveal RPE disruption superonasal to fovea with resolution of SRF, improved OS: Normal retina cross section with preservation of fovea, clivus, and cellular lamina OD (top 11/29/23, bottom 01/10/2024) OS (top 11/29/23, bottom 01/10/2024) Rochelle Zepeda MD OPHTHALMOLOGY SCHED ORD W PACS * RETINAL ANALYSIS OCT (11/29/2023 2:18 PM CDT) Anatomical Region Laterality Modality Head External-Camera Photography Narrative 12/01/2023 10:39 AM CDT Images from the original result were not included. OCT macula 11/29/2023 OD: Focal area of parafoveal RPE disruption superonasal to fovea with small recurrence of SRF OS: Normal retina cross section with preservation of fovea, clivus, and cellular lamina Top 11/30/2022, Bottom 11/29/2023 Top 11/30/2022, Bottom 11/29/2023 Rochelle Zepeda MD OPHTHALMOLOGY SCHED ORD W PACS * RETINAL ANALYSIS OCT (11/30/2022 3:42 PM CDT) Anatomical Region Laterality Modality Head External-Camera Photography Narrative 12/02/2022 10:33 AM CDT Images from the original result were not included. OD: Focal area of parafoveal RPE disruption superonasal to fovea with no overlying IRF/SRF, stable today (below) compared to previous (above)- regressed CNVM OS: Normal retina crosssection with preservation of fovea, clivus, and cellular lamina Rochelle Zepeda MD OPHTHALMOLOGY SCHED ORD W PACS * OCT (01/16/2022 9:48 AM CDT) Anatomical Region Laterality Modality Other 01/16/2022 9:48 AM CDT Rochelle Zepeda MD OPHTHALMOLOGY SERVIC ES ORDERABLES * OCT (07/18/2021 9:54 AM SR RISK MANAGEMENT CONSULTANT) Anatomical Region Laterality Modality Other 07/18/2021 9:54 AM SR RISK MANAGEMENT CONSULTANT Rochelle Zepeda MD OPHTHALMOLOGY SERVIC ES ORDERABLES * OCT (03/19/2021 9:56 AM CDT) Anatomical Region Laterality Modality Other 03/19/2021 9:56 AM CDT Rochelle Zepeda MD OPHTHALMOLOGY SERVIC ES ORDERABLES * OCT (01/17/2021 9:28 AM CDT) Anatomical Region Laterality Modality Other 01/17/2021 9:28 AM CDT Rochelle Zepeda MD OPHTHALMOLOGY SERVIC ES ORDERABLES * OPH OCT TEST SLU (12/06/2020 10:02 AM CDT) Anatomical Region Laterality Modality Other 12/06/2020 10:0 2 AM CDT Rochelle Zepeda MD OPHTHALMOLOGY SERVIC ES ORDERABLES * IL INJ INTRAVITREAL PHARMCOLOGIC RT (10/30/2020 5:27 PM CDT) Narrative Rochelle Zepeda MD - 10/30/2020 5:27 PM CDT Rochelle Zepeda MD 11/02/2020 8:51 PM Intravitreal Injection Note Procedure: Intravitreal injections of Avastin, Right eye Route of administration: Intravitreal Dosage: 1.25mg Amount administered: 0.05cc Lot number: [id number] Expiration date: 12/11/20 Diagnosis: Choroidal neovascular membrane, right eye Anesthesia: Proparacaine, and Tetracaine Prep: 5% Betadine Solution Description of Procedure: After informed consent was obtained, anesthetic and 5% Betadine solution were placed in the right eye. A lid speculum was then placed and the injection was given approximately 4 mm posterior to the inferotemporal limbus. The speculum was then removed and the eye was rinsed with sterile saline. Hand motion visual acuity was present following the injection. The patient tolerated the procedure well with no complications. We reviewed the warning signs of endophthalmitis and the patient was instructed to follow-up as directed, sooner for any concerning visual signs or symptoms. Dr. Zepeda was present for the entirety of the procedure. Aleks Newby M.D ([place]). Ophthalmology, PGY-2 I am the attending on the encounter. I was personally present for the entire procedure and supervised Dr Newby directly who performed the procedure without complications. Rochelle Zepeda MD Attending, Retina and Uveitis service Date of service 10/30/2020 Rochelle Zepeda MD PROCEDURE/MINOR SURG ICAL ORDERABLES * OPH OCT TEST SLU (10/30/2020 2:50 PM CDT) Anatomical Region Laterality Modality Other 10/30/2020 2:50 PM CDT Rochelle Zepeda MD OPHTHALMOLOGY SERVIC ES ORDERABLES * OPH OCT TEST SLU (09/27/2020 11:13 AM CDT) Anatomical Region Laterality Modality Other 09/27/2020 11:1 3 AM CDT Rochelle Zepeda MD OPHTHALMOLOGY SERVIC ES ORDERABLES * IL INJ INTRAVITREAL PHARMCOLOGIC RT (08/28/2020 1:57 PM CDT) Narrative Rochelle Zepeda MD - 08/28/2020 1:57 PM CDT Rochelle Zepeda MD 08/30/2020 12:51 AM Intravitreal Injection Note Procedure: Intravitreal injections of Avastin, Right eye. Route of administration: Intravitreal Lot number: [id number] Expiration date: 09/29/20 Diagnosis: choroidal neovascular membrane, right eye secondary to COMPLIANCE PARALEGAL Anesthesia: Topical Proparicane drops Prep: 5% Betadine Solution Description of Procedure: After informed consent was obtained, anesthetic and 5% Betadine solution were placed in the Right eye. A lid speculum was then placed and the injection was given approximately 3.5 mm posterior to the temporal limbus. The speculum was then removed and the eye was rinsed with sterile saline. Hand motion visual acuity was present following the injection. The patient tolerated the procedure well with no complications. We reviewed the warning signs of endophthalmitis and the patient was instructed to follow-up as directed, sooner for any concerning visual signs or symptoms. Girma Beckford MD Ophthalmology PGY-II I am the attending on the encounter. I was personally present for the entire procedure and supervised Dr Beckford directly who performed the procedure without complications. Rochelle Zepeda MD Attending, Retina and Uveitis service Date of service 08/28/2020 Rochelle Zepeda MD PROCEDURE/MINOR SURG ICAL ORDERABLES * OPH OCT TEST SLU (08/28/2020 1:42 PM CDT) Anatomical Region Laterality Modality Other 08/28/2020 1:42 PM CDT Rochelle Zepeda MD OPHTHALMOLOGY SERVIC ES ORDERABLES * IL INJ INTRAVITREAL PHARMCOLOGIC RT (07/31/2020 12:56 PM SR RISK MANAGEMENT CONSULTANT) Narrative Rochelle Zepeda MD - 07/31/2020 12:56 PM SR RISK MANAGEMENT CONSULTANT Rochelle Zepeda MD 08/01/2020 11:43 PM Intravitreal Injection Note Procedure: Intravitreal injections of Avastin, Right eye Route of administration: Intravitreal Dosage: 1.25mg Amount administered: 0.05cc Lot number: [id number] Expiration date: 09/01/2020 Diagnosis: Right choroidal neovasculariztion Anesthesia: 4% Lidocaine Prep: 5% Betadine Solution Description of Procedure: After informed consent was obtained, anesthetic and 5% Betadine solution were placed in the right eye and upper lashes and lower lashes were cleaned with Betadine. A lid speculum was then placed, another drop of betadine was placed in the eye and the injection was given approximately 4 mm posterior to theinferotemporal limbus. The speculum was then removed and the eye was rinsed with sterile saline. Hand motion visual acuity was present following the injection. The patient tolerated the procedure well with no complications. We reviewed the warning signs of endophthalmitis and the patient was instructed to follow-up as directed, sooner for any concerning visual signs or symptoms. Hope Neal MD Ophthalmology PGY3 I am the attending on the encounter. I was personally present for the entire procedure and supervised Dr Neal directly who performed the procedure without complications. Rochelle Zepeda MD Attending, Retina and Uveitis service Date of service 07/31/2020 Rochelle Zepeda MD PROCEDURE/MINOR SURG ICAL ORDERABLES * OPH OCT TEST SLU (07/31/2020 11:59 AM SR RISK MANAGEMENT CONSULTANT) Anatomical Region Laterality Modality Other 07/31/2020 11:5 9 AM SR RISK MANAGEMENT CONSULTANT Rochelle Zepeda MD OPHTHALMOLOGY SERVIC ES ORDERABLES * IL INJ INTRAVITREAL PHARMCOLOGIC RT (06/11/2020 2:03 PM SR RISK MANAGEMENT CONSULTANT) Narrative Rochelle Zepeda MD - 06/11/2020 2:03 PM SR RISK MANAGEMENT CONSULTANT Rochelle Zepeda MD 06/11/2020 2:05 PM Intravitreal Injection Note Procedure: Intravitreal injections of Avastin, Right eye Route of administration: Intravitreal Dosage: 1.25mg Amount administered: 0.05cc Lot number: [id number] Expiration date: 07/16/2020 Diagnosis: Choroidal neovascular membrane secondary to chronic COMPLIANCE PARALEGAL, Right Eye Anesthesia: Topical Proparacaine, and 4% Lidocaine Prep: 5% Betadine Solution Description of Procedure: After informed consent was obtained, anesthetic and 5% Betadine solution were placed in the operative eye. A lid speculum was then placed and the injection was given 4 mm posterior to the superotemporal limbus. The speculum was then removed and the eye was rinsed with sterile saline. Hand motion visual acuity was present following the injection. The patient tolerated the procedure well with no complications. We reviewed the warning signs of endophthalmitis and the patient was instructed to follow-up as directed, sooner for any concerning visual signs or symptoms. I am the attending on the encounter. I personally performed the entire procedure for the patient without complications. Rochelle Zepeda MD Attending, Retina and Uveitis service Date of service 06/11/2020 Rochelle Zepeda MD PROCEDURE/MINOR SURG ICAL ORDERABLES * OPH OCT TEST SLU (06/11/2020 1:22 PM SR RISK MANAGEMENT CONSULTANT) Anatomical Region Laterality Modality Other 06/11/2020 1:22 PM SR RISK MANAGEMENT CONSULTANT Rochelle Zepeda MD OPHTHALMOLOGY SERVIC ES ORDERABLES * IL INJ INTRAVITREAL PHARMCOLOGIC RT (04/30/2020 1:34 PM SR RISK MANAGEMENT CONSULTANT) Narrative Rochelle Zepeda MD - 04/30/2020 1:34 PM SR RISK MANAGEMENT CONSULTANT Rochelle Zepeda MD 05/01/2020 8:26 AM Intravitreal Injection Note Procedure: Intravitreal injection of Avastin, right eye Route of administration: Intravitreal Dosage: 1.25mg Amount administered: 0.05cc Lot number: [id number] Expiration date: 06/18/2020 Diagnosis: Choroidal neovascular membrane, right eye Anesthesia: Topical Proparacaine, 4% Lidocaine Prep: 5% Betadine Solution Description of Procedure: After informed consent was obtained, anesthetic and 5% Betadine solution were placed in the right eye. A lid speculum was then placed and the injection was given approximately 4 mm posterior to the superotemporal limbus. The speculum was then removed and the eye was rinsed with sterile saline. Hand motion visual acuity was present following the injection. The patient tolerated the procedure well with no complications. We reviewed the warning signs of endophthalmitis and the patient was instructed to follow-up as directed, sooner for any concerning visual signs or symptoms. Dr. Zepeda performed the entirety of the procedure. Samuel Avila MD Ophthalmology Resident 04/30/2020 1:34 PM I am the attending on the encounter. I was personally present and performed the entire procedure. Rochelle Zepeda MD Attending, Retina and Uveitis service Date of service 04/30/2020 Samuel Avila MD PROCEDURE/MINOR SURG ICAL ORDERABLES * OPH OCT TEST SLU (04/30/2020 10:51 AM SR RISK MANAGEMENT CONSULTANT) Anatomical Region Laterality Modality Other 04/30/2020 10:5 1 AM SR RISK MANAGEMENT CONSULTANT Rochelle Zepeda MD OPHTHALMOLOGY SERVIC ES ORDERABLES * OPH OCT TEST SLU (04/23/2020 3:14 PM SR RISK MANAGEMENT CONSULTANT) Anatomical Region Laterality Modality Other 04/23/2020 3:14 PM SR RISK MANAGEMENT CONSULTANT Rochelle Zepeda MD OPHTHALMOLOGY SERVIC ES ORDERABLES * OPH OCT TEST SLU (04/23/2020 1:12 PM SR RISK MANAGEMENT CONSULTANT) Anatomical Region Laterality Modality Other 04/23/2020 1:12 PM SR RISK MANAGEMENT CONSULTANT Rochelle Zepeda MD OPHTHALMOLOGY SERVIC ES ORDERABLES * OPH FLUORESCEIN ANGIOGRAPHY TRANSIT TEST SLU (04/09/2020 3:55 PM SR RISK MANAGEMENT CONSULTANT) Anatomical Region Laterality Modality Other 04/09/2020 3:55 PM SR RISK MANAGEMENT CONSULTANT Samuel Avila MD OPHTHALMOLOGY SERVIC ES ORDERABLES * OPH OCT TEST SLU (04/09/2020 2:40 PM SR RISK MANAGEMENT CONSULTANT) Anatomical Region Laterality Modality Other 04/09/2020 2:40 PM SR RISK MANAGEMENT CONSULTANT Rochelle Zepeda MD OPHTHALMOLOGY SERVIC ES ORDERABLES * OCT (04/09/2020 2:25 PM SR RISK MANAGEMENT CONSULTANT) Anatomical Region Laterality Modality Other 04/09/2020 2:25 PM SR RISK MANAGEMENT CONSULTANT Rochelle Zepeda MD OPHTHALMOLOGY SERVIC ES ORDERABLES * Color fundus photography (02/13/2020 3:43 PM CDT) Anatomical Region Laterality Modality Other 02/13/2020 3:43 PM CDT Alkes Newby MD OPHTHALMOLOGY SERV ICES ORDERABLES * OCT (02/13/2020 2:34 PM CDT) Anatomical Region Laterality Modality Other 02/13/2020 2:34 PM CDT Aleks Newby MD OPHTHALMOLOGY SERV ICES ORDERABLES * DERMATOPATHOLOGY (07/11/2019 12:00 AM SR RISK MANAGEMENT CONSULTANT) Case Report Dermatopathology Report Case: [id number] Authorizing Provider: Tiago Geiger MD Collected: 07/11/2019 12:00 AM Ordering Location: [facility] DermPath Lab Received: 07/12/2019 01:49 PM Pathologist: Dawit Alexis MD Specimen: Skin, right shoulder 0 5:00 PM SR RISK MANAGEMENT CONSULTANT DERMATOPATHOLOGY LABORATORY Final Diagnosis Specimen A. SKIN, right shoulder: EPIDERMOID CYST, FRAGMENTS OF (L72.0) PRESENT AT MARGIN 0 5:00 PM SR RISK MANAGEMENT CONSULTANT DERMATOPATHOLOGY LABORATORY Clinical History Changing lesion. Check margins. 0 5:00 PM SR RISK MANAGEMENT CONSULTANT DERMATOPATHOLOGY LABORATORY Gross Description Specimen A: Received is one formalin filled container labeled with the patients name and designated right shoulder. The specimen (2 pieces) consists of a [id number], [id number] excision of skin. The margin is inked green. The specimen is bisected lengthwise and submitted in 1 cassette. Jar 0+. 0 5:00 PM [facility] DERMATOPATHOLOGY LABORATORY Microscopic Description Specimen A. SKIN, right shoulder: Sections show multiple portions of epithelium with a granular layer. There are also portions of keratin, predominantly in a basket-woven configuration. This lesion is present at the margin of the specimen. 0 5:00 PM [facility] DERMATOPATHOLOGY LABORATORY Disclaimer An external and internal positive and negative controls are appropriate for the histochemical, immunohistochemical and immunofluorescence stain(s) in this case (if any), except where stated explicitly. The performance characteristics of the stain(s) cited in this report were developed and its performance characteristic determined by the Dermatopathology Laboratory at [facility], directed by Dr. Curtis Alexis. These tests need not be, and therefore are not, approved by the [place] Food and Drug Administration. The tests are used for clinical purposes. Billing Codes Specimen Charges Stain Charges 70779 1 0 5:00 PM SR RISK MANAGEMENT CONSULTANT DERMATOPATHOLOGY LABORATORY Embedded Images 0 5:00 PM [facility] DERMATOPATHOLOGY LABORATORY Pathology/Cytolog y TISSUE SPECIMEN FROM SKIN / Unknown 07/11/2019 07/12/2019 1:49 PM SR RISK MANAGEMENT CONSULTANT Tiago Geiger MD LAB - PATHOLOGY/CYTO LOGY ORDERABLES Performing Organization Address City/State/[facility] Co de Phone Number DERMATOPATHOLOGY LABORATORY [facility] - Department of Dermatology [address] [place] [address], [address]th Floor Lab [address] [phone] Care Teams Director Of Vocational Training Relationship Specialty Start Date End Date Tiago Geiger MD [address] [place] [address] PCP - General 10/20/17 Rao Bean MD [address] [place] [address] Product Responsibility Liaison Hospitalist 06/11/20
--- OUTSIDE RECORDS SUMMARY | 2024-07-20 00:52 | XMS_ITS | Encounter Summary ---
Author Organization [facility] Address [address] [place] [address] Care Team Providers Care Business Reporter Name Role Phone Tiago Geiger MD Primary Care Provider [phone] Rao Bean MD Unavailable [phone] Encounter Details Date Type Department Care Team (Late Contact Info) Description 07/12/2019 Lab Requisition [facility] [address] [place] [phone] Tiago Geiger MD [address] [place] [address] Social History Tobacco Use Types Packs/Day Years Used Date Smoking Tobacco: Never Assessed Sex and Gender Information Value Date Recorded Sex Assigned at Not on file Gender Identity Not on file Sexual Orientation Not on file documented as of this encounter Plan of Treatment Upcoming Encounters Date Type Department Care Team (Late Contact Info) Description 09/25/2024 1:00 PM CDT Office Visit [facility] - Ophthalmology [address] [place] [phone] Rochelle Zepeda MD [address] [place] [address] [place] [phone] documented as of this encounter Procedures Procedure Name Priority Date/Time Associated Diagnosis Comments DERMATOPATHOLOGY Routine 07/11/2019 12:0 0 AM STRAIGHT CUTTER MACHINE documented in this encounter Results * DERMATOPATHOLOGY (07/11/2019 12:00 AM [facility]) Case Report Dermatopathology Report Case: [id number] Authorizing Provider: Tiago Geiger MD Collected: 07/11/2019 12:00 AM Ordering Location: [facility] Lab Received: 07/12/2019 01:49 PM Pathologist: Dawit Alexis MD Specimen: Skin, right shoulder 0 5:00 PM [facility] DERMATOPATHOLOGY LABORATORY Final Diagnosis Specimen A. SKIN, right shoulder: EPIDERMOID CYST, FRAGMENTS OF (L72.0) PRESENT AT MARGIN 0 5:00 PM [facility] DERMATOPATHOLOGY LABORATORY Clinical History Changing lesion. Check margins. 0 5:00 PM [facility] DERMATOPATHOLOGY LABORATORY Gross Description Specimen A: Received is one formalin filled container labeled with the patients name and designated right shoulder. The specimen (2 pieces) consists of a [id number], [id number] excision of skin. The margin is inked green. The specimen is bisected lengthwise and submitted in 1 cassette. Jar 0+. 0 5:00 PM [facility] DERMATOPATHOLOGY LABORATORY Microscopic Description Specimen A. SKIN, right shoulder: Sections show multiple portions of epithelium with a granular layer. There are also portions of keratin, predominantly in a basket-woven configuration. This lesion is present at the margin of the specimen. 0 5:00 PM [facility] DERMATOPATHOLOGY LABORATORY Disclaimer An external and internal positive and negative controls are appropriate for the histochemical, immunohistochemical and immunofluorescence stain(s) in this case (if any), except where stated explicitly. The performance characteristics of the stain(s) cited in this report were developed and its performance characteristic determined by the Dermatopathology Laboratory at [facility], directed by Dr. Curtis Alexis. These tests need not be, and therefore are not, approved by the [place] Food and Drug Administration. The tests are used for clinical purposes. Billing Codes Specimen Charges Stain Charges 23065 1 0 5:00 PM [facility] DERMATOPATHOLOGY LABORATORY Embedded Images 0 5:00 PM [facility] DERMATOPATHOLOGY LABORATORY Pathology/Cytolog y TISSUE SPECIMEN FROM SKIN / Unknown 07/11/2019 07/12/2019 1:49 PM STRAIGHT CUTTER MACHINE Tiago Geiger MD LAB - PATHOLOGY/CYTO LOGY ORDERABLES DERMATOPATHOLOGY LABORATORY [facility] - Department of Dermatology [address] [place] [address], 5th Floor Lab [address] [phone] documented in this encounter Visit Diagnoses Not on filedocumented in this encounter Care Teams Business Reporter Relationship Specialty Start Date End Date Tiago Geiger MD [address] [place] [address] PCP - General 10/20/17 Rao Bean MD [address] [place] [address] Quality And Reliability Engineer Hospitalist 06/11/20 documented as of this encounter
--- OUTSIDE RECORDS SUMMARY | 2024-07-20 00:52 | XMS_ITS | Referral Summary ---
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
--- OUTSIDE RECORDS SUMMARY | 2024-07-20 00:52 | XMS_ITS | Referral Summary ---
Author Organization [facility] Address [address] [place] [address] Care Team Providers Care Drink Box Mechanic Name Role Phone Tiago Geiger MD Primary Care Provider [phone] Rao Bean MD Unavailable [phone] Source Comments [facility],non-owned Affiliates and Associated Physician Practices is amultiple site organization consisting of ambulatory clinics and hospital sitesin [place], [place], [place] and [place]. This disclosure is being madepursuant to the Care Everywhere program and may not contain all information available regarding this patient. Last updated 18.[facility] [employer] Allergies Active Allergy Reactions Criticality Noted Date [...] Description 09/25/2024 1:00 PM CDT Office Visit [facility] - Ophthalmology [address] [place] [phone] Rochelle Zepeda MD [address] [place] [address] [place] [phone] Care Teams Drink Box Mechanic Relationship Specialty Start Date End Date Tiago Geiger MD [address] [place] [address] PCP - General 10/20/17 Rao Bean MD [address] [place] [address] Rigger Helper Hospitalist 06/11/20
[2024-07-20 12:07] VITALS: BP 142/90; PULSE 61; RESP 18; TEMP 35.8; O2SAT 100
[2024-07-20] MEDS: LACTATED RINGERS 1,000 ML 150 ML IV CONT (12:17)
[2024-07-20 12:22] LABS: Glucose Point of Care 107 mg/dl (65-105)
--- NOTE | 2024-07-20 13:08 | P.PNAN_ITS ---
Anes - Initial Pre Proc Eval Procedure: Operation Date: 07/20/24 13:30 Proposed Procedures p Colonoscopy - Rao Bean MD Date/Time: 07/20/24 13:08 Surgeon: Rao Bean MD Pre Op Diagnosis: ulcerative colitis Patient Data Age: 48 Gender: M Height: 1.83 m Weight: 177.9 kg Last Vital Signs Temp 35.8 C L 07/20/24 12:07 Pulse 61 07/20/24 12:07 Resp 18 07/20/24 12:07 BP 142/90 H 07/20/24 12:07 Pulse Ox 100 07/20/24 12:07 O2 Del Method Room Air 07/20/24 12:07 Allergies Allergy/AdvReac Type Severity Reaction Status Date / Time metolazone AdvReac Intermediate Vomiting Verified 07/20/24 12:04 tramadol AdvReac Intermediate Headache Verified 07/20/24 12:04 Home Medications ?Medication ?Instructions ?Recorded ?Confirmed ?Type gnstotwaxu-fzqgmoeaqwhly-ncbbsaxv 1 cap PO Q8H PRN Headache #60 caps 02/24/24 07/03/24 Rx 50 mg-300 mg-40 mg capsule (Fioricet) famotidine 40 mg tablet 40 mg PO QHS #90 tabs 05/25/24 07/20/24 Rx amlodipine 5 mg tablet 5 mg PO DAILY #90 tabs 06/13/24 07/20/24 Rx duloxetine 60 mg capsule,delayed 60 mg PO DAILY #90 caps 06/13/24 07/20/24 Rx release oxycodone 10 mg tablet 10 mg PO Q8H pain #90 tabs 06/26/24 07/20/24 Rx tirzepatide 5 mg/0.5 mL 5 mg (0.5 mL) subcut WEEKLY #2 mL 06/26/24 07/20/24 Rx subcutaneous pen injector (Mounjaro) sulfasalazine 500 mg tablet See Rx Instructions .Route 06/27/24 07/20/24 Rx .COMPLEX #180 tabs carvedilol 6.25 mg tablet 6.25 mg PO Q12H #180 tabs 07/16/24 07/20/24 Rx furosemide 80 mg tablet 80 mg PO QAM #90 tabs 02/09/25 02/13/25 Rx Laboratory Tests 07/20/24 12:19 POC Capillary Glucose 107 H mg/dl (65-105) Patient hx anesthesia problems: none Family hx anesthesia problems: none Results Review: All pre-operative results and documents have been reviewed as part of the pre- operative evaluation. [facility] Past Medical History Medical History Nail deformity Trochanteric bursitis, left hip Diabetes type 2, controlled Hyperglycemia Polyarticular arthritis Trochanteric bursitis, right hip Bilateral hip pain Arthritis Vision abnormalities Chronic headaches Tensor fascia анна syndrome BMI 50.0-59.9, adult Osteoarthritis, hip, bilateral Bilateral shoulder tendinopathy Choroidal neovascular membrane of right eye Obesity, morbid, BMI 50 or higher GERD (gastroesophageal reflux disease) Red color blindness Anxiety Chronic diastolic congestive heart failure Essential (primary) hypertension Morbid obesity Ulcerative colitis Screening for prostate cancer Knee osteoarthritis Family History Family History Grandparent Family history of coronary artery disease Mother Family history of coronary artery disease COPD (chronic obstructive pulmonary disease) Bipolar 1 disorder Hypertension Father Acute myocardial infarction Sibling Hypertension Asthma Other Depression Family history of arthritis Family history of heart disease in male family member before age 55 Social History Social History Smoking status: Never smoker Second hand tobacco smoke exposure: Yes Alcohol intake: former Substance use: never Substance use type: does not use Do You Feel Safe in your Home?: Yes Lack of Transportation: No Lack of Food: Never True Current Housing: I Have Housing Concerned About Future Housing: No Difficulty Paying Gas/Electric Bills: No Difficulty Paying for Meds: No Currently Unemployed: No Education: Bachelor's Degree Difficulty w/ Childcare or Family Care: No Living arrangements: with family Occupation/Education: unemployed 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 Informed Consent: The patient's anesthetic plan and its attendant risks and benefits were dis cussed with the patient/family/POA. Questions were solicited and answers provided to the satisfaction of the patient/family/POA.
--- NOTE | 2024-07-20 13:48 | PM.HPGS ---
History of Present Illness History of Present Illness Consent: Risks, benefits, and alternatives have been discussed and questions answered. Patient agrees to proceed with procedure. Chief complaint: ulcerative colitis Narrative: Earl Santo is a 48 year old male here for another colonoscopy, he has UC pancolitis first dx age 14, now is taking sulfasalazine 1.5 grams (was on humira that took for a year worked well but developed antibodies, then entyvio but also took 2 doses and discontinued because developed cough). He is getting yearly colonoscopies last time with chromoendoscopy 05/2023 without any more colitis no dysplasia. He is on resmission. Review of Systems Review of Systems: All systems reviewed & are unremarkable except as noted in HPI and below PMFSH Past Medical History Medical History Nail deformity Trochanteric bursitis, left hip Diabetes type 2, controlled Hyperglycemia Polyarticular arthritis Trochanteric bursitis, right hip Bilateral hip pain Arthritis Vision abnormalities Chronic headaches Tensor fascia анна syndrome BMI 50.0-59.9, adult Osteoarthritis, hip, bilateral Bilateral shoulder tendinopathy Choroidal neovascular membrane of right eye Obesity, morbid, BMI 50 or higher GERD (gastroesophageal reflux disease) Red color blindness Anxiety Chronic diastolic congestive heart failure Essential (primary) hypertension Morbid obesity Ulcerative colitis Screening for prostate cancer Knee osteoarthritis Family History Family History Grandparent Family history of coronary artery disease Mother Family history of coronary artery disease COPD (chronic obstructive pulmonary disease) Bipolar 1 disorder Hypertension Father Acute myocardial infarction Sibling Hypertension Asthma Other Depression Family history of arthritis Family history of heart disease in male family member before age 55 Social History Social History Smoking status: Never smoker Second hand tobacco smoke exposure: Yes Alcohol intake: former Substance use: never Substance use type: does not use Do You Feel Safe in your Home?: Yes Lack of Transportation: No Lack of Food: Never True Current Housing: I Have Housing Concerned About Future Housing: No Difficulty Paying Gas/Electric Bills: No Difficulty Paying for Meds: No Currently Unemployed: No Education: Bachelor's Degree Difficulty w/ Childcare or Family Care: No Living arrangements: with family Occupation/Education: unemployed 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 Gender identity (if verbalized by the patient): Male Spiritual care concerns: No Meds Home Medications and Allergies Home Medications ?Medication ?Instructions ?Recorded ?Confirmed ?Type stwdnupqnv-meiclevqtcgat-lzgssmcj 1 cap PO Q8H PRN Headache #60 caps 02/24/24 07/03/24 Rx 50 mg-300 mg-40 mg capsule (Fioricet) famotidine 40 mg tablet 40 mg PO QHS #90 tabs 05/25/24 07/20/24 Rx amlodipine 5 mg tablet 5 mg PO DAILY #90 tabs 06/13/24 07/20/24 Rx duloxetine 60 mg capsule,delayed 60 mg PO DAILY #90 caps 06/13/24 07/20/24 Rx release oxycodone 10 mg tablet 10 mg PO Q8H pain #90 tabs 06/26/24 07/20/24 Rx tirzepatide 5 mg/0.5 mL 5 mg (0.5 mL) subcut WEEKLY #2 mL 06/26/24 07/20/24 Rx subcutaneous pen injector (Funmilayo) sulfasalazine 500 mg tablet See Rx Instructions .Route 06/27/24 07/20/24 Rx .COMPLEX #180 tabs carvedilol 6.25 mg tablet 6.25 mg PO Q12H #180 tabs 07/16/24 07/20/24 Rx furosemide 80 mg tablet 80 mg PO QAM #90 tabs 07/16/24 07/20/24 Rx Allergies Allergy/AdvReac Type Severity Reaction Status Date / Time metolazone AdvReac Intermediate Vomiting Verified 07/20/24 12:04 tramadol AdvReac Intermediate Headache Verified 07/20/24 12:04 Vital Signs Vital Signs - 24 hr 07/20/24 12:07 Temperature 96.5 F L Pulse Rate 61 Respiratory Rate 18 Blood Pressure 142/90 H Pulse Oximetry 100 Oxygen Delivery Room Air Exam Const: General: comfortable and no acute distress HENMT: Face/Nose/Sinus: Normal nares present Eyes: General: appearance normal, both eyes and all related structures Neck: Neck: no JVD Resp: Auscultation: clear to auscultation bilaterally Cardio: Rate: regular rate Rhythm: regular rhythm GI: Inspection: non-distended GI Palp: Yes Soft to palpation Skin: General skin exam: normal color Neuro: General: gait normal Speech: normal speech Extrem: General: normal to inspection Psych: Mental Status: mental status grossly normal Assessment and Plan Assessment and plan (1) Ulcerative colitis: Qualifiers: Ulcerative colitis location: other ulcerative colitis Digestive disease complication type: without complication Qualified Code(s): K51.80 - Other ulcerative colitis without complications Code(s): K51.90 - Ulcerative colitis, unspecified, without complications Status: Acute Assessment and Plan: colonoscopy for dysplasia surveillance
[2024-07-20] MEDS: METHYLENE BLUE 0.5% INJ 10 ML AMPULE 20 ML IRRIGATION (14:04)
[2024-07-20 14:18] VITALS: BP 107/66; PULSE 63; RESP 21; O2SAT 92
[2024-07-20 14:28] VITALS: BP 109/69; PULSE 60; RESP 21; O2SAT 93
[2024-07-20 14:38] VITALS: BP 106/65; PULSE 60; RESP 17; O2SAT 99
== END 2024-07-20 14:52 | disposition home or self-care (01) ==
PROVIDERS: PCP Family Medicine; Visit Provider Internal Medicine Gastroenterology
PROC: 0DJD8ZZ Inspection of Lower Intestinal Tract, Via Natural or Artificial Opening Endoscopic (ICD-10-PCS; CPT 45378; principal; 2024-07-20 13:30)
DX: K51.80 Other ulcerative colitis without complications (principal); K64.8 Other hemorrhoids; K63.5 Polyp of colon; E11.65 Type 2 diabetes mellitus with hyperglycemia; I11.0 Hypertensive heart disease with heart failure; I50.32 Chronic diastolic (congestive) heart failure; M16.0 Bilateral primary osteoarthritis of hip; R51.9 Headache, unspecified; K21.9 Gastro-esophageal reflux disease without esophagitis; F41.9 Anxiety disorder, unspecified; M17.10 Unilateral primary osteoarthritis, unspecified knee; E66.01 Morbid (severe) obesity due to excess calories; Z68.43 Body mass index [BMI] 50.0-59.9, adult; Z79.891 Long term (current) use of opiate analgesic; Z79.85 Long-term (current) use of injectable non-insulin antidiabetic drugs; Z87.19 Personal history of other diseases of the digestive system; Z82.49 Family history of ischemic heart disease and other diseases of the circulatory system
CPT/HCPCS: 45380; 82948; 88305; J2003; J2704; J7120; Q9968

== ENCOUNTER 2024-10-23 08:50 | Outpatient (CLI) | payer OTHER, SELFPAY ==
--- NOTE | ~2024-10-23 | XR_ITS ---
XR chest 2V Ordering provider: Tiago Geiger MD History: 49 years Male with . R07.2 - Precordial pain . Comparison: January 09, 2019 FINDINGS: MEDIASTINUM: The cardiac silhouette is not enlarged. LUNGS: No infiltrates, effusions or pneumothorax. OTHER: No free air under the diaphragm. Degenerative changes of the spine. IMPRESSION: No acute cardiopulmonary pathology. Reviewed, dictated and finalized at location A.
--- OUTSIDE RECORDS SUMMARY | 2024-10-23 09:06 | XMS_ITS | Encounter Summary ---
Author Organization [facility] Address [address] [place] [address] Care Team Providers Care Assembler Watch Train Name Role Phone Tiago Geiger MD Primary Care Provider [phone] Rao Bean MD Unavailable [phone] Encounter Details Date Type Department Care Team (Late Contact Info) Description 07/12/2019 Lab Requisition [facility] [address] [place] [phone] Tiago Geiger MD [address] [place] [address] Social History Tobacco Use Types Packs/Day Years Used Date Smoking Tobacco: Never Assessed Sex and Gender Information Value Date Recorded Sex Assigned at Not on file Legal Sex Male 5:06 PM 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 Gender Identity Not on file Sexual Orientation Not on file documented as of this encounter Plan of Treatment Upcoming Encounters Date Type Department Care Team (Late Contact Info) Description 06/27/2025 1:15 PM 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 Office Visit [facility] - Ophthalmology [address] [place] [phone] Rochelle Zepeda MD [address] [place] [address] [place] [phone] documented as of this encounter Procedures Procedure Name Priority Date/Time Associated Diagnosis Comments DERMATOPATHOLOGY Routine 07/11/2019 12:0 0 AM 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 documented in this encounter Results * DERMATOPATHOLOGY (07/11/2019 12:00 AM 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) Case Report Dermatopathology Report Case: [id number] Authorizing Provider: Tiago Geiger MD Collected: 07/11/2019 12:00 AM Ordering Location: [facility] DermPath Lab Received: 07/12/2019 01:49 PM Pathologist: Dawit Alexis MD Specimen: Skin, right shoulder 0 5:00 PM [facility] DERMATOPATHOLOGY LABORATORY Final Diagnosis Specimen A. SKIN, right shoulder: EPIDERMOID CYST, FRAGMENTS OF (L72.0) PRESENT AT MARGIN 0 5:00 PM [facility] DERMATOPATHOLOGY LABORATORY at 1700 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 Clinical History Changing lesion. Check margins. 0 5:00 PM [facility] DERMATOPATHOLOGY LABORATORY Gross Description Specimen A: Received is one formalin filled container labeled with the patients name and designated right shoulder. The specimen (2 pieces) consists of a [id number], [id number] excision of skin. The margin is inked green. The specimen is bisected lengthwise and submitted in 1 cassette. Jar 0+. 0 5:00 PM [facility] DERMATOPATHOLOGY LABORATORY Microscopic Description Specimen A. SKIN, right shoulder: Sections show multiple portions of epithelium with a granular layer. There are also portions of keratin, predominantly in a basket-woven configuration. This lesion is present at the margin of the specimen. 0 5:00 PM [facility] DERMATOPATHOLOGY LABORATORY Disclaimer An external and internal positive and negative controls are appropriate for the histochemical, immunohistochemical and immunofluorescence stain(s) in this case (if any), except where stated explicitly. The performance characteristics of the stain(s) cited in this report were developed and its performance characteristic determined by the Dermatopathology Laboratory at [facility], directed by Dr. Curtis Alexis. These tests need not be, and therefore are not, approved by the [place] Food and Drug Administration. The tests are used for clinical purposes. Billing Codes Specimen Charges Stain Charges 98332 1 0 5:00 PM [facility] DERMATOPATHOLOGY LABORATORY Embedded Images 0 5:00 PM 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 DERMATOPATHOLOGY LABORATORY Pathology/Cytolog y TISSUE SPECIMEN FROM SKIN / Unknown 07/11/2019 07/12/2019 1:49 PM 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 Tiago Geiger MD LAB - PATHOLOGY/CYTOLOGY [facility] Final Result DERMATOPATHOLOGY LABORATORY [facility] - Department of Dermatology [address] [place] [address] 5th Floor Lab [address] [phone] documented in this encounter Visit Diagnoses Not on filedocumented in this encounter Care Teams Assembler Watch Train Relationship Specialty Start Date End Date Tiago Geiger MD [address] [place] [address] PCP - General 10/20/17 Rao Bean MD [address] [place] [address] Slip Cover Cutter Hospitalist 06/11/20 documented as of this encounter
--- OUTSIDE RECORDS SUMMARY | 2024-10-23 09:06 | XMS_ITS | Clinical Summary ---
Author Organization [facility] Address [address] [place] [address] Care Team Providers Care Operations Program Manager Name Role Phone Tiago Geiger MD Primary Care Provider Allergies No known active allergies Medications amLODIPine (NORVASC) 5 mg tablet TK 1 T PO QD 0 12/27/2018 Active aspirin 81 mg chewable tablet BARREL ROLLER OPERATOR ONE T QAM 0 01/03/2019 Active budesonide [...] Diagnosed Date Chronic diastolic congestive heart failure 02/02 Essential hypertension 02/02/2019 Ulcerative pancolitis with complication 01/20/20 19 High risk medications (not anticoagulants) long- term [...] on file 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
--- OUTSIDE RECORDS SUMMARY | 2024-10-23 09:06 | XMS_ITS | Referral Summary ---
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
--- OUTSIDE RECORDS SUMMARY | 2024-10-23 09:06 | XMS_ITS | Clinical Summary ---
Author Organization [facility] [employer] Address [address] [place] [address] Care Team Providers Care Twister Tender Paper Name Role Phone Tiago Geiger MD Primary Care Provider Rao Bean MD Unavailable [phone] Source Comments [facility],non-owned Affiliates and Associated Physician Practices is amultiple site organization consisting of ambulatory clinics and hospital sitesin [place], [place], [place] and [place]. This disclosure is being madepursuant to the Care Everywhere program and may not contain all information available regarding this patient. Last updated 18.[facility] [employer] Allergies Active Allergy Reactions Criticality Noted Date Comments Metolazone Nausea and/or Vomiting 10/21/2022 Tramadol Headache 10/21/2022 Medications * Be aware that medications may not be up to date on this document. Alwaysverify current medications with the patient. amLODIPine (NORVASC) 5 MG tablet TK 1 T PO QD 9 Active furosemide (LASIX) 40 MG tablet 0 Active sulfaSALAzine (AZULFIDINE) 500 MG tablet Take 1 (one) tablet by mouth 2 times daily 0 Active butalbital-acet aminophen-caffe ine (Fioricet) 50-300-40 MG capsule TAKE 1 CAPSULE BY MOUTH EVERY 8 HOURS NEEDED FOR HEADACHE OR PAIN 3 Active carvedilol (Coreg) 6.25 MG tablet TAKE 1 TABLET BY MOUTH EVERY 12 HOURS WITH FOOD 3 Active DULoxetine (Cymbalta) 30 MG capsule Take 1 (one) capsule by mouth once daily 2 Active famotidine (Pepcid) 40 MG tablet 4 Active Mounjaro 5 MG/0.5ML injection Active Trulicity 1.5 MG/0.5ML injection 4 09/26/19 25 Discontinu ed(List Clean-Up) Active Problems Problem Noted Date Diagnosed Date Diabetes type 2, controlled 07/24/2022 Chronic diastolic congestive heart failure 02/02 Essential hypertension 02/02/2019 Ulcerative pancolitis with complication 01/20/20 19 Encounters Date Type Department Care Team Description 09/25/2024 1:00 PM CDT Office Visit [facility] - Ophthalmology [address] [place] [phone] Rochelle Zepeda MD Choroidal neovascular membrane of right eye (Primary Dx); Central serous chorioretinopathy of right eye; Diabetes mellitus without complication (HCC); Cobblestone retinal degeneration, bilateral 09/25/2024 12:55 PM CDT Clinical Support [facility] [address] [place] [phone] Rochelle Zepeda MD Choroidal neovascular membrane of right eye (Primary Dx) 09/25/2024 Travel from Last 3 Months Family History Medical History Relation Name Comments [...] Average Number of Drinks Not on file Frequency of Binge Drinking Not on file 01/2020 PHQ-2 Answer Date Recorded Patient Health Questionnaire-2 Score 0 09/25/2024 Sex and Gender Information Value Date Recorded Sex Assigned at Not on file Legal Sex Male 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 CRACKING TESTER Gender Identity Not on file Sexual Orientation Not on file Plan of Treatment Upcoming Encounters Date Type Department Care Team (Isreal baldwin Contact Info) Description 06/27/2025 1:15 PM MERCURY CRACKING TESTER Office Visit [facility] - Ophthalmology [address] [facility], [place] [phone] Rochelle Zepeda MD [address] [place] [address] [place] [phone] Health Maintenance Due Date Last Done Comments [...] of 3 - 19+ 3-dose series) 1993 PNEUMOCOCCAL VACCINE 50+ (1 of 2 - PCV) 1993 DIABETES-STATIN 2014 DIABETES-FOOT EXAM WITH MONOFILAMENT 11/29/2023 DIABETES-HGB A1C 11/29/2023 COVID-19 VACCINE ( - season) 2024 DIABETES - URINE PROTEIN SCREENING 06/07/2024 ZOSTER VACCINE (1 of 2) 2024 INFLUENZA VACCINE (Season Ended) 2025 05/18/2019, 06/19/2013 DIABETES RETINOPATHY SCREENING 09/25/2026 09/25/2024, 09/25/2024, 01/10/2024, Additional history exists DEPRESSION SCREENING Completed 09/25/2024 HIB VACCINE Aged Out No longer eligi ble based on patient's age to complete this topic HPV VACCINE Aged Out No longer eligi ble based on patient's age to complete this topic MENINGOCOCCAL (Group B) VACCINE SHARED DECISION-MAKING Aged Out No longer eligible based on patient's age to complete this topic MENINGOCOCCAL GROUPS A/C/Y/W VACCINE Aged Out No longer eligible based on patient's age to complete this topic Procedures Procedure Name Priority Date/Time Associated Diagnosis Comments RETINAL ANALYSIS OCT Routine 09/25/2024 12:53 PM CDT Choroidal neovascular membrane of right eye from Last 3 Months Results * RETINAL ANALYSIS OCT (09/25/2024 12:53 PM CDT) Anatomical Region Laterality Modality Head External-Camera Photography Narrative 10/02/2024 10:35 AM CDT Images from the original result were not included. OCT OD: Focal area of parafoveal RPE disruption superonasal to fovea without SRF , Stable OS: Normal retina cross section with preservation of fovea, clivus, and cellular lamina OD Todays picture bottom one OS Todays picture bottom one Rochelle Zepeda MD OPHTHALMOLOGY SCHED ORD W PACS Edited Result - Final from Last 3 Months Insurance [place] [employer] [place] INSURANCE Member Subscriber Plan / Payer (Ef fective for All Dates) Name:Rayna Arguelles Member ID:Not on file Relation to Subscriber:Not on file Name:RAYNA ARGUELLES Subscriber ID:Not on file (Home) Address: [address] [place] [address] Payer ID:Not on file Group ID:Not on file Type:Self Pay Address: [place], [place] [employer] NO INSURANCE Member Subscriber Plan / Payer (Ef fective for All Dates) Name:Rayna Arguelles Manuel Member ID:Not on file Relation to Subscriber:Not on file Name:BLANERAYNA Subscriber ID:Not on file (Home) Address: [address] [place] [address] Payer ID:Not on file Group ID:Not on file Type:Self Pay Address: [place] [employer] NO INSURANCE Member Subscriber Plan / Payer (Ef fective for All Dates) Name:Rayna Arguelles Member ID:Not on file Relation to Subscriber:Not on file Name:RAYNA ARGUELLES Subscriber ID:Not on file (Home) Address: [address] [place] [id number] Payer ID:Not on file Group ID:Not on file Type:Self Pay Address: [place], [place] Care Teams Twister Tender Paper Relationship Specialty Start Date End Date Tiago Geiger MD [address] [place] [address] PCP - General 10/20/17 Rao Bean MD [address] [place] [address] Welding Machine Operator Plasma Arc Hospitalist 06/11/20
== END 2024-10-23 08:51 | disposition home or self-care (01) ==
PROVIDERS: PCP Family Medicine; Visit Provider Family Medicine
DX: R07.2 Precordial pain (principal)
CPT/HCPCS: 71046

== ENCOUNTER 2024-12-21 11:21 | Emergency (ER) | payer OTHER, SELFPAY ==
--- NOTE | ~2024-12-21 | XR_ITS ---
XR abdomen/kub 1V Ordering provider: Corey Alcala MD History: . constipation . Comparison: October 16, 2017 FINDINGS: BOWEL: Nonobstructive bowel gas pattern. Fecal material is loaded in the colon. ORGANOMEGALY: None. SIGNIFICANT PATHOLOGIC CALCIFICATIONS: None. OTHER: No free air is seen under the diaphragm. IMPRESSION: NO ACUTE ABDOMINAL FINDINGS. Constipation. Reviewed, dictated and finalized at location A.
--- OUTSIDE RECORDS SUMMARY | 2024-12-21 11:30 | XMS_ITS | Referral Summary ---
Author Organization [facility] Address [address] [place] [address] Care Team Providers Care Veneer Press Operator Name Role Phone Tiago Geiger MD Primary Care Provider [phone] Allergies No known active allergies Medications amLODIPine (NORVASC) 5 mg tablet TK 1 T PO QD 0 12/27/2018 Active aspirin 81 mg chewable tablet TUBE DEPATCHER ONE T QAM 0 01/03/2019 Active budesonide [...] on file Legal Sex Male 12:29 PM WORM GROWER Gender Identity Male 02/01/2019 8:28 PM CDT [...] Plan of Treatment Not on file [place] [address] [facility] IDPA [facility] Care Teams Veneer Press Operator Relationship Specialty Start Date End Date Tiago Geiger MD PCP - General Family Medicine 01/03/19
--- OUTSIDE RECORDS SUMMARY | 2024-12-21 11:30 | XMS_ITS | Clinical Summary ---
Author Organization [facility] Address [address] [place] [address] Care Team Providers Care Oracle Dba Name Role Phone Tiago Geiger MD Primary Care Provider [phone] Rao Bean MD Unavailable [phone] Source Comments [facility],non-owned Affiliates and Associated Physician Practices is amultiple site organization consisting of ambulatory clinics and hospital sitesin [place], [place], [place] and [place]. This disclosure is being madepursuant to the Care Everywhere program and may not contain all information available regarding this patient. Last updated 18.[facility] [employer] Allergies Active Allergy Reactions Criticality Noted Date [...] by mouth 2 times daily 05/21/2020 Active butalbital-acet aminophen-caffe ine (Fioricet) 50-300-40 MG capsule TAKE 1 CAPSULE BY MOUTH EVERY 8 HOURS NEEDED FOR HEADACHE OR PAIN 11/23/2022 Active carvedilol (Coreg) 6.25 MG tablet TAKE 1 TABLET BY MOUTH EVERY 12 HOURS WITH FOOD 11/16/2022 Active DULoxetine (Cymbalta) 30 MG capsule Take 1 (one) capsule by mouth once daily 05/21/2022 Active famotidine (Pepcid) 40 MG tablet 10/05/2023 Active Mounjaro 5 MG/0.5ML injection Active Active Problems Problem Noted Date Diagnosed Date Diabetes type 2, controlled 07/24/2022 Chronic diastolic congestive heart failure 02/02 Essential hypertension 02/02/2019 Ulcerative pancolitis with complication 01/20/20 19 Encounters Date Type Department Care Team Description 09/25/2024 1:00 PM CDT Office Visit [facility] - Op[facility]mology [address] [place] [phone] Rochelle Zepeda MD Choroidal neovascular membrane of right eye (Primary Dx); Central serous chorioretinopathy of right eye; Diabetes mellitus without complication (HCC); Cobblestone retinal degeneration, bilateral 09/25/2024 12:55 PM CDT Clinical Support [facility] [address] [place] [phone] Rochelle Zepeda MD Choroidal neovascular membrane of [...] on file Legal Sex Male 5:06 PM WET PROCESS OPERATOR Gender Identity Not on file Sexual Orientation Not on file Plan of Treatment Upcoming Encounters Date Type Department Care Team (Late st Contact Info) Description 06/27/2025 1:15 PM WET PROCESS OPERATOR Office Visit [facility] - [facility]mology [address] [facility], [place] [address] Rochelle Zepeda MD [address] [facility] [place] [address] Health Maintenance Due Date Last Done Comments [...] MONOFILAMENT 11/29/2023 DIABETES-HGB A1C 11/29/2023 COVID-19 VACCINE (1 - season) 2024 DIABETES - URINE PROTEIN SCREENING 06/07/2024 ZOSTER VACCINE (1 of 2) 2024 INFLUENZA VACCINE (#1) 2025 05/18/2019, 2013 DIABETES RETINOPATHY SCREENING 09/25/2026 09/25/2024, 09/25/2024, 01/10/2024, [...] bottom one OS Todays picture bottom one us Rochelle Zepeda MD OPHTHALMOLOGY SCHED ORD W PACS Edited Result - Final from Last 3 Months Insurance [employer] [facility] [employer] [facility] SELF PAY NO INSURANCE Member Subscriber Plan / Payer (Ef fective for All Dates) Name:Rayna Arguelles Member ID:Not on file Relation to Subscriber:Not on file Name:RAYNA ARGUELLES Manuel Subscriber ID:Not on file (Home) Address: [address] [place] [address] Payer ID:Not on file Group ID:Not on file Type:Self Pay Address: [place], [place] [facility] SELF PAY NO INSURANCE Member Subscriber Plan / Payer (Ef fective for All Dates) Name:Rayna Arguelles Member ID:Not on file Relation to Subscriber:Not on file Name:RAYNA ARGUELLES Subscriber ID:Not on file (Home) Address: [address] [place] [address] Payer ID:Not on file Group ID:Not on file Type:Self Pay Address: [place], [place] [facility] SELF PAY NO INSURANCE Member Subscriber Plan / Payer (Ef fective for All Dates) Name:Rayna Arguelles Member ID:Not on file Relation to Subscriber:Not on file Name:RAYNA ARGUELLES Subscriber ID:Not on file (Home) Address: [address] [place] [phone] Payer ID:Not on file Group ID:Not on file Type:Self Pay Address: [place], [place] Care Teams Oracle Dba Relationship Specialty Start Date End Date Tiago Geiger MD [address] [place] [address] PCP - General 10/20/17 Rao Bean MD [address] [place] [address] Cuff Stitcher Hospitalist 06/11/20
--- OUTSIDE RECORDS SUMMARY | 2024-12-21 11:30 | XMS_ITS | Clinical Summary ---
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
--- OUTSIDE RECORDS SUMMARY | 2024-12-21 11:30 | XMS_ITS | Encounter Summary ---
Author Organization [facility] Address [address] [place] [address] Care Team Providers Care Fourth Officer Name Role Phone Tiago Geiger MD Primary Care Provider [phone] Rao Bean MD Unavailable [phone] Encounter Details Date Type Department Care Team (Late Contact Info) Description 07/12/2019 Lab Requisition [facility] [address] [place] [phone] Tiago Geiger MD [address] [place] [address] Social History Tobacco Use Types Packs/Day Years Used Date Smoking Tobacco: Never Assessed Sex and Gender Information Value Date Recorded Sex Assigned at Not on file Legal Sex Male 5:06 PM TONGUE AND GROOVE MACHINE FEEDER Gender Identity Not on file Sexual Orientation Not on file documented as of this encounter Plan of Treatment Upcoming Encounters Date Type Department Care Team (Late Contact Info) Description 06/27/2025 1:15 PM TONGUE AND GROOVE MACHINE FEEDER Office Visit [facility] - Ophthalmology [address] [place] [phone] Rochelle Zepeda MD [address] [place] [address] [place] [phone] documented as of this encounter Procedures Procedure Name Priority Date/Time Associated Diagnosis Comments DERMATOPATHOLOGY Routine 07/11/2019 12:0 0 AM TONGUE AND GROOVE MACHINE FEEDER documented in this encounter Results * DERMATOPATHOLOGY (07/11/2019 12:00 AM TONGUE AND GROOVE MACHINE FEEDER) Case Report Dermatopathology Report Case: [id number] Authorizing Provider: Tiago Geiger MD Collected: 07/11/2019 12:00 AM Ordering Location: [facility] Received: 07/12/2019 01:49 PM Pathologist: Dawit Alexis MD Specimen: Skin, right shoulder 0 5:00 PM [facility] DERMATOPATHOLOGY LABORATORY Final Diagnosis Specimen A. SKIN, right shoulder: EPIDERMOID CYST, FRAGMENTS OF (L72.0) PRESENT AT MARGIN 0 5:00 PM [facility] DERMATOPATHOLOGY LABORATORY at [address] TONGUE AND GROOVE MACHINE FEEDER Clinical History Changing lesion. Check margins. 0 5:00 PM [facility] DERMATOPATHOLOGY LABORATORY Gross Description Specimen A: Received is one formalin filled container labeled with the patients name and designated right shoulder. The specimen (2 pieces) consists of a [id number], [id number] excision of skin. The margin is inked green. The specimen is bisected lengthwise and submitted in 1 cassette. Jar 0+. 0 5:00 PM [facility] DERMATOPATHOLOGY LABORATORY Microscopic Description Specimen A. SKIN, right shoulder: Sections show multiple portions of epithelium with a granular layer. There are also portions of keratin, predominantly in a basket-woven configuration. This lesion is present at the margin of the specimen. 0 5:00 PM [facility] DERMATOPATHOLOGY LABORATORY Disclaimer An external and internal positive and negative controls are appropriate for the histochemical, immunohistochemical and immunofluorescence stain(s) in this case (if any), except where stated explicitly. The performance characteristics of the stain(s) cited in this report were developed and its performance characteristic determined by the Dermatopathology Laboratory at [facility], directed by Dr. Curtis Alexis. These tests need not be, and therefore are not, approved by the [place] Food and Drug Administration. The tests are used for clinical purposes. Billing Codes Specimen Charges Stain Charges 21112 1 0 5:00 PM [facility] DERMATOPATHOLOGY LABORATORY Embedded Images 0 5:00 PM TONGUE AND GROOVE MACHINE FEEDER DERMATOPATHOLOGY LABORATORY Pathology/Cytolog y TISSUE SPECIMEN FROM SKIN / Unknown 07/11/2019 07/12/2019 1:49 PM TONGUE AND GROOVE MACHINE FEEDER Tiago Geiger MD LAB - PATHOLOGY/CYTOLOGY [facility]DE [facility]ENN Final Result DERMATOPATHOLOGY LABORATORY [facility] - Department of Dermatology [address] [place] [address] 5th Floor Lab [address] [phone] documented in this encounter Visit Diagnoses Not on filedocumented in this encounter Care Teams Fourth Officer Relationship Specialty Start Date End Date Tiago Geiger MD [address] [place] [address] PCP - General 10/20/17 Rao Bean MD [address] [place] [address] Shop Clerk Hospitalist 06/11/20 documented as of this encounter
[2024-12-21 11:31] VITALS: BP 138/99; PULSE 108; RESP 18; TEMP 36.6; O2SAT 97
[2024-12-21 12:30] VITALS: BP 152/92; PULSE 88; RESP 18; TEMP 36.6; O2SAT 98
--- NOTE | 2024-12-21 12:47 | ED_ITS ---
HPI - Abdominal Pain General Chief Complaint: Abdominal Pain Stated Complaint: bowel impaction Time Seen by Provider: 12/21/24 11:28 Source: patient Mode of arrival: ambulatory Limitations: no limitations History of Present Illness HPI narrative: 49-year-old with a history of hypertension, diabetes, morbid obesity, chronic back pain on opioids here with a complains of having rectal pain. Patient states that he has not had a bowel movement for past few days and he thinks it is impacted. He states that he has taken Dulcolax with no results. MD elicited complaint: abdominal pain Pertinent past history: constipation Onset (ago): day(s) (2) Location: other (Rectal) Severity: moderate Quality: aching Migration to: no migration Exacerbating factors: nothing Relieving factors: nothing Related Data Allergies Allergy/AdvReac Type Severity Reaction Status Date / Time metolazone AdvReac Intermediate Vomiting Verified 12/21/24 11:22 tramadol AdvReac Intermediate Headache Verified 12/21/24 11:22 Review of Systems Review of Systems: All systems reviewed & are unremarkable except as noted in HPI and below Constitutional: Constitutional: Reports no additional constitutional complaints Eyes: Eyes: Reports no additional eye complaints ENT: Reports system reviewed and no additional complaints, except as documented Cardiovascular: Cardiovascular: Reports no additional cardiovascular complaints Respiratory: Respiratory: Reports no additional respiratory complaints Gastrointestinal: Gastrointestinal: Reports as per HPI Musculoskeletal: Musculoskeletal: Reports no additional musculoskeletal complaints [facility] Past Medical History Medical History Nail deformity Trochanteric bursitis, left hip Diabetes type 2, controlled Hyperglycemia Polyarticular arthritis Trochanteric bursitis, right hip Bilateral hip pain Arthritis Vision abnormalities Chronic headaches Tensor fascia анна syndrome BMI 50.0-59.9, adult Osteoarthritis, hip, bilateral Bilateral shoulder tendinopathy Choroidal neovascular membrane of right eye Obesity, morbid, BMI 50 or higher GERD (gastroesophageal reflux disease) Red color blindness Anxiety Chronic diastolic congestive heart failure Essential (primary) hypertension Morbid obesity Ulcerative colitis Screening for prostate cancer Knee osteoarthritis Family History Family History Grandparent Family history of coronary artery disease Mother Family history of coronary artery disease COPD (chronic obstructive pulmonary disease) Bipolar 1 disorder Hypertension Father Acute myocardial infarction Sibling Hypertension Asthma Other Depression Family history of arthritis Family history of heart disease in male family member before age 55 Social History Social History Smoking status: Never smoker Second hand tobacco smoke exposure: Yes Alcohol intake: former Substance use: never Substance use type: does not use Do You Feel Safe in your Home?: Yes Lack of Transportation: No Lack of Food: Never True Current Housing: I Have Housing Concerned About Future Housing: No Difficulty Paying Gas/Electric Bills: No Difficulty Paying for Meds: No Currently Unemployed: No Education: Bachelor's Degree Difficulty w/ Childcare or Family Care: No Living arrangements: with family Occupation/Education: unemployed 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 HEAD: Normocephalic, atraumatic. EYES: PERRLA and EOMI. ENT: Nares clear,. Mucous membranes moist. NECK: Supple. CHEST: Clear to auscultation. No respiratory distress. HEART: Regular rate and rhythm. No murmur heard. Normal peripheral pulses. ABDOMEN: Soft, nontender, nondistended, normal active bowel sounds. Morbidly obese abdomen EXTREMITIES: Normal range of motion. No edema. SKIN: Warm, dry, no rash. NEURO: No focal deficits. Alert and oriented x3. PSYCH: Normal mood and affect. Course Course Emergency Course: Patient was given soapsuds enema had a good bowel movement following the enema. Feels much better. Did inform about x-ray results. Recommended him to take MiraLax daily Vital Signs Vital signs: Vital Signs Temperature 36.6 C 12/21/24 11:31 Pulse Rate 108 H 12/21/24 11:31 Respiratory Rate 18 12/21/24 11:31 Blood Pressure 138/99 H 12/21/24 11:31 Pulse Oximetry 97 12/21/24 11:31 Oxygen Delivery Room Air 12/21/24 11:31 Temperature 36.6 C 12/21/24 11:31 Pulse Rate 108 H 12/21/24 11:31 Respiratory Rate 18 12/21/24 11:31 Blood Pressure 138/99 H 12/21/24 11:31 Pulse Oximetry 97 12/21/24 11:31 Oxygen Delivery Room Air 12/21/24 11:31 MDM - Abdominal Pain Imaging Data Radiologist's impression: ITS Impressions Abdomen X-Ray 12/21/24 12:30 IMPRESSION: NO ACUTE ABDOMINAL FINDINGS. Constipation. Discharge Plan Discharge Clinical Impression: Constipation due to opioid therapy Patient Disposition: Home Condition: Stable Instructions: Constipation (DC) Additional Instructions: Take Miralax daily , high fiber diet. Patient Language: [place] Islander Prescriptions: No Action sulfasalazine 500 mg tablet See Rx Instructions .ROUTE .COMPLEX Qty: 180 6RF Dose Instruction: TAKE 3 TABLETS BY MOUTH TWICE DAILY Rx Instructions: TAKE 3 TABLETS BY MOUTH TWICE DAILY carvedilol 6.25 mg tablet 6.25 mg PO Q12H Qty: 180 1RF Rx Instructions: must administer with a meal/food furosemide 80 mg tablet 80 mg PO QAM Qty: 90 1RF famotidine 40 mg tablet 40 mg PO QHS Qty: 90 1RF zxoxmzzbjp-dxfiscemsbqma-ujdz [Fioricet] 50-300-40 mg capsule 1 cap PO Q8H PRN (Reason: Headache) Qty: 60 1RF Rx Instructions: TAKE ONE CAPSULE BY MOUTH EVERY 8 HOURS NEEDED FOR PAIN duloxetine 60 mg capsule,delayed release(DR/EC) 60 mg PO DAILY Qty: 90 1RF amlodipine 5 mg tablet 5 mg PO DAILY Qty: 90 1RF Rx Instructions: TAKE 1 TABLET BY MOUTH DAILY oxycodone 10 mg tablet 10 mg PO Q8H Qty: 90 0RF Mounjaro 5 mg/0.5 mL pen injector 5 mg subcut WEEKLY Qty: 2 3RF Follow-up/Referrals: Tiago Geiger MD [Primary Care Provider] - Time of Disposition: 12:48
== END 2024-12-21 12:55 | disposition home or self-care (01) ==
PROVIDERS: Emergency Provider Family Medicine; PCP Family Medicine
DX: K59.03 Drug induced constipation (principal); T40.2X5A Adverse effect of other opioids, initial encounter; I50.32 Chronic diastolic (congestive) heart failure; I11.0 Hypertensive heart disease with heart failure; E11.9 Type 2 diabetes mellitus without complications; E66.01 Morbid (severe) obesity due to excess calories; Z68.43 Body mass index [BMI] 50.0-59.9, adult; K51.90 Ulcerative colitis, unspecified, without complications; K21.9 Gastro-esophageal reflux disease without esophagitis; M16.0 Bilateral primary osteoarthritis of hip; M17.9 Osteoarthritis of knee, unspecified; Z77.22 Contact with and (suspected) exposure to environmental tobacco smoke (acute) (chronic); Z79.85 Long-term (current) use of injectable non-insulin antidiabetic drugs; Z79.899 Other long term (current) drug therapy
CPT/HCPCS: 74018; 99283

== ENCOUNTER 2024-12-26 08:55 | Outpatient (CLI) | payer OTHER, SELFPAY ==
--- OUTSIDE RECORDS SUMMARY | 2024-12-26 09:00 | XMS_ITS | Referral Summary ---
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
--- OUTSIDE RECORDS SUMMARY | 2024-12-26 09:00 | XMS_ITS | Encounter Summary ---
Author Organization [facility] Address [address] [place] [address] Care Team Providers Care Acrobatic Dancer Name Role Phone Tiago Geiger MD Primary Care Provider [phone] Rao Bean MD Unavailable [phone] Encounter Details Date Type Department Care Team (Late Contact Info) Description 07/12/2019 Lab Requisition [facility] [address] [place] [phone] Tiago Geiger MD [address] [place] [address] Social History Tobacco Use Types Packs/Day Years Used Date Smoking Tobacco: Never Assessed Sex and Gender Information Value Date Recorded Sex Assigned at Not on file Legal Sex Male 5:06 PM WREATH INSPECTOR Gender Identity Not on file Sexual Orientation Not on file documented as of this encounter Plan of Treatment Upcoming Encounters Date Type Department Care Team (Late Contact Info) Description 06/27/2025 1:15 PM WREATH INSPECTOR Office Visit [facility] - Ophthalmology [address] [place] [phone] Rochelle Zepeda MD [address] [place] [address] [place] [phone] documented as of this encounter Procedures Procedure Name Priority Date/Time Associated Diagnosis Comments DERMATOPATHOLOGY Routine 07/11/2019 12:0 0 AM WREATH INSPECTOR documented in this encounter Results * DERMATOPATHOLOGY (07/11/2019 12:00 AM WREATH INSPECTOR) Case Report Dermatopathology Report Case: [id number] Authorizing Provider: Tiago Geiger MD Collected: 07/11/2019 12:00 AM [facility]ing [facility] Received: 07/12/2019 01:49 PM Pathologist: Dawit Alexis MD Specimen: Skin, right shoulder 0 5:00 PM [facility] DERMATOPATHOLOGY LABORATORY Final Diagnosis Specimen A. SKIN, right shoulder: EPIDERMOID CYST, FRAGMENTS OF (L72.0) PRESENT AT MARGIN 0 5:00 PM [facility] DERMATOPATHOLOGY LABORATORY at 1700 WREATH INSPECTOR Clinical History Changing lesion. Check margins. 0 5:00 PM [facility] DERMATOPATHOLOGY LABORATORY Gross Description Specimen A: Received is one formalin filled container labeled with the patients name and designated right shoulder. The specimen (2 pieces) consists of a [id number], [id number] excision of skin. The margin is inked green. The specimen is bisected lengthwise and submitted in 1 cassette. Jar 0+. 0 5:00 PM [facility] DERMATOPATHOLOGY LABORATORY Microscopic Description Specimen A. SKIN, right shoulder: Sections show multiple portions of epithelium with a granular layer. There are also portions of keratin, predominantly in a basket-woven configuration. This lesion is present at the margin of the specimen. 0 5:00 PM [facility] DERMATOPATHOLOGY LABORATORY Disclaimer An external and internal positive and negative controls are appropriate for the histochemical, immunohistochemical and immunofluorescence stain(s) in this case (if any), except where stated explicitly. The performance characteristics of the stain(s) cited in this report were developed and its performance characteristic determined by the Dermatopathology Laboratory at [facility], directed by Dr. Curtis Alexis. These tests need not be, and therefore are not, approved by the [place] Food and Drug Administration. The tests are used for clinical purposes. Billing Codes Specimen Charges Stain Charges 66023 1 0 5:00 PM [facility] DERMATOPATHOLOGY LABORATORY Embedded Images 0 5:00 PM WREATH INSPECTOR DERMATOPATHOLOGY LABORATORY Pathology/Cytolog y TISSUE SPECIMEN FROM SKIN / Unknown 07/11/2019 07/12/2019 1:49 PM WREATH INSPECTOR Tiago Geiger MD LAB - PATHOLOGY/CYTOLOGY ORDE GLENN Final Result DERMATOPATHOLOGY LABORATORY [facility] - Department of Dermatology [address] [place] [address] 5th Floor Lab [address] [phone] documented in this encounter Visit Diagnoses Not on filedocumented in this encounter Care Teams Acrobatic Dancer Relationship Specialty Start Date End Date Tiago Geiger MD [address] [place] [address] PCP - General 10/20/17 Rao Bean MD [address] [place] [address] Pipe Assembly Worker Hospitalist 06/11/20 documented as of this encounter
--- OUTSIDE RECORDS SUMMARY | 2024-12-26 09:00 | XMS_ITS | Clinical Summary ---
Author Organization [facility] Address [address] [place] [address] Care Team Providers Care Weight Analyst Name Role Phone Tiago Geiger MD Primary Care Provider Allergies No known active allergies Medications amLODIPine (NORVASC) 5 mg tablet TK 1 T PO QD 0 12/27/2018 Active aspirin 81 mg chewable tablet TRANSFER STATION OPERATOR ONE T QAM 0 01/03/2019 Active [...] on file Legal Sex Male 12:29 PM COUNSELING SPECIALIST Gender Identity Male 02/01/2019 8:28 PM CDT [...] Plan of Treatment Not on file [place] [address] [place] [address] [place] [address] [facility] [place] [address] [facility] Care Teams Weight Analyst Relationship Specialty Start Date End Date Tiago Geiger MD PCP - General Family Medicine 01/03/19
--- OUTSIDE RECORDS SUMMARY | 2024-12-26 09:00 | XMS_ITS | Clinical Summary ---
Author Organization [facility] Address [address] [place] [address] Care Team Providers Care Kinder Teacher Name Role Phone Tiago Geiger MD Primary Care Provider [phone] Rao Bean MD Unavailable [phone] Source Comments [facility],non-owned Affiliates and Associated Physician Practices is amultiple site organization consisting of ambulatory clinics and hospital sitesin [place], [place], [place] and [place]. This disclosure is being madepursuant to the Care Everywhere program and may not contain all information available regarding this patient. 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 Gender Identity Not on file Sexual Orientation Not on file Plan of Treatment Upcoming Encounters Date Type Department Care Team (Late st Contact Info) Description 06/27/2025 1:15 PM GRINDING SUPERVISOR Office Visit [facility] - Ophthalmology [facility] [place] [address] Rochelle Zepeda MD [address] [place] [address] [place] [address] Health Maintenance Due Date Last Done Comments [...] DIABETES-HGB A1C 11/29/2023 COVID-19 VACCINE (1 - 2023- season) 2024 DIABETES - URINE PROTEIN SCREENING [...] on patient's age to complete this topic Insurance [facility] SELF PAY NO INSURANCE Member Subscriber Plan / Payer (Ef fective for All Dates) Name:Rayna Arguelles Member ID:Not on file Relation to Subscriber:Not on file Name:RAYNA ARGUELLES Subscriber ID:Not on file (Home) Address: [address] [place] [phone] Payer ID:Not on file Group ID:Not on file Type:Self Pay Address: [place], [place] [facility] SELF PAY NO INSURANCE Member Subscriber Plan / Payer (Ef fective for All Dates) Name:Rayna Arguelles Member ID:Not on file Relation to Subscriber:Not on file Name:BLANERAYNA Subscriber ID:Not on file (Home) Address: [address] [place] [phone] Payer ID:Not on file Group ID:Not on file Type:Self Pay Address: [place], [place] [facility] SELF PAY NO INSURANCE Member Subscriber Plan / Payer (Ef fective for All Dates) Name:Rayna Arguelles Member ID:Not on file Relation to Subscriber:Not on file Name:BLANERAYNA Subscriber ID:Not on file (Home) Address: [address] [place] [id number] Payer ID:Not on file Group ID:Not on file Type:Self Pay Address: [place], [place] Care Teams Kinder Teacher Relationship Specialty Start Date End Date Tiago Geiger MD [address] [place] [address] PCP - General 10/20/17 Rao Bean MD [address] [place] [address] Certified Travel Counselor Hospitalist 06/11/20
[2024-12-26 09:36] LABS: Hematocrit 46.8 % (42.0-52.0); Hemoglobin 15.7 g/dL (14.0-18.0); Mean Corpuscular HGB Conc 33.5 g/dl (32-36); Mean Corpuscular Hemoglobin 30.3 pg (26-34); Mean Corpuscular Volume 90.2 fl (80-100); Platelet Count Result 265 k/mm3 (150-375); Red Blood Count 5.19 M/mm3 (4.6-6.20); White Blood Count 7.9 K/mm3 (4.5-10.0)
[2024-12-26 10:00] LABS: Alanine Aminotransferase 23 U/L (6-50); Albumin Level 4.2 g/dL (3.5-5.1); Alkaline Phosphatase 77 U/L (38-126); Anion Gap 8 mmol/L (4-12); Aspartate Amino Transferase 30 U/L (17-59); Bilirubin,Total 0.5 mg/dL (0.2-1.3); Blood Urea Nitrogen 9 mg/dL (9-20); Calcium 9.0 mg/dL (8.4-10.2); Carbon Dioxide 28 mmol/L (22-30); Chloride 100 mmol/L (98-107); Estimated Glomerular Filt Rate > 60; Glucose 105 mg/dL (65-110); Potassium 3.1 mmol/L (3.4-5.0); Sodium 136 mmol/L (137-145); Total Protein 7.4 g/dL (6.3-8.2)
[2024-12-26 10:41] LABS: CRP 1.1 mg/dL (<1.0)
== END 2024-12-26 08:56 | disposition home or self-care (01) ==
LOC: ANHLAB 08:56
PROVIDERS: PCP Family Medicine; Visit Provider Internal Medicine Gastroenterology
DX: K51.80 Other ulcerative colitis without complications (principal)
CPT/HCPCS: 36415; 80053; 85027; 85652; 86140

== ENCOUNTER 2024-12-29 12:25 | Outpatient (CLI) | payer OTHER, SELFPAY ==
--- OUTSIDE RECORDS SUMMARY | 2024-12-29 12:27 | XMS_ITS | Encounter Summary ---
Author Organization [facility] Address [address] [facility] [place] [address] Care Team Providers Care Product Marketing Executive Name Role Phone Tiago Geiger MD Primary Care Provider [phone] Rao Bean MD Unavailable [phone] Encounter Details Date Type Department Care Team (Late Contact Info) Description 07/12/2019 Lab Requisition [facility] [address] [place] [phone] Tiago Geiger MD [address] [place] [address] Social History Tobacco Use Types Packs/Day Years Used Date Smoking Tobacco: Never Assessed Sex and Gender Information Value Date Recorded Sex Assigned at Not on file 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 Gender Identity Not on file Sexual Orientation Not on file documented as of this encounter Plan of Treatment Upcoming Encounters Date Type Department Care Team (Late Contact Info) Description 06/27/2025 1:15 PM PUNCH FINISHER Office Visit [facility] - Ophthalmology [address] [place] [phone] Rochelle Zepeda MD [address] [place] [address] [place] [address] documented as of this encounter Procedures Procedure Name Priority Date/Time Associated Diagnosis Comments DERMATOPATHOLOGY Routine 07/11/2019 12:0 0 AM PUNCH FINISHER documented in this encounter Results * DERMATOPATHOLOGY (07/11/2019 12:00 AM PUNCH FINISHER) Case Report Dermatopathology Report Case: [id number] Authorizing Provider: Tiago Geiger MD Collected: 07/11/2019 12:00 AM Ordering Location: [facility] Lab Received: 07/12/2019 01:49 PM Pathologist: Dawit Alexis MD Specimen: Skin, right shoulder 0 5:00 PM [facility] DERMATOPATHOLOGY LABORATORY Final Diagnosis Specimen A. SKIN, right shoulder: EPIDERMOID CYST, FRAGMENTS OF (L72.0) PRESENT AT MARGIN 0 5:00 PM [facility] DERMATOPATHOLOGY LABORATORY at 1700 PUNCH FINISHER Clinical History Changing lesion. Check margins. 0 5:00 PM [facility] DERMATOPATHOLOGY LABORATORY Gross Description Specimen A: Received is one formalin filled container labeled with the patients name and designated right shoulder. The specimen (2 pieces) consists of a [id number], [id number] excision of skin. The margin is inked green. The specimen is bisected lengthwise and submitted in 1 cassette. Jar 0+. 0 5:00 PM [facility] DERMATOPATHOLOGY LABORATORY Microscopic Description Specimen A. SKIN, right shoulder: Sections show multiple portions of epithelium with a granular layer. There are also portions of keratin, predominantly in a basket-woven configuration. This lesion is present at the margin of the specimen. 0 5:00 PM [facility] DERMATOPATHOLOGY LABORATORY Disclaimer An external and [...] purposes. Billing Codes Specimen Charges Stain Charges 84653 1 0 5:00 PM [facility] DERMATOPATHOLOGY LABORATORY Embedded Images 0 5:00 PM PUNCH FINISHER DERMATOPATHOLOGY LABORATORY Pathology/Cytolog y TISSUE SPECIMEN FROM SKIN / Unknown 07/11/2019 07/12/2019 1:49 PM PUNCH FINISHER Tiago Geiger MD LAB - PATHOLOGY/CYTOLOGY ORDE GLENN Final Result DERMATOPATHOLOGY LABORATORY [facility] - Department of Dermatology [address] [place] [address] 5th Floor Lab [address] [phone] documented in this encounter Visit Diagnoses Not on filedocumented in this encounter Care Teams Product Marketing Executive Relationship Specialty Start Date End Date Tiago Geiger MD [address] [place] [address] PCP - General 10/20/17 Rao Bean MD [address] [place] [address] Receiving Worker Hospitalist 06/11/20 documented as of this encounter
--- OUTSIDE RECORDS SUMMARY | 2024-12-29 12:27 | XMS_ITS | Referral Summary ---
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
--- OUTSIDE RECORDS SUMMARY | 2024-12-29 12:27 | XMS_ITS | Clinical Summary ---
Author Organization [facility] Address [address] [place] [address] Care Team Providers Care Metal Engraver Name Role Phone Tiago Geiger MD Primary Care Provider Allergies No known active allergies Medications amLODIPine (NORVASC) 5 mg tablet TK 1 T PO QD 0 12/27/2018 Active aspirin 81 mg chewable tablet FOOT MITER OPERATOR ONE T QAM 0 01/03/2019 Active [...] on file Legal Sex Male 12:29 PM VP MEDICAL Gender Identity Male 02/01/2019 8:28 PM CDT [...] Plan of Treatment Not on file Insurance [place] [address] [address] [facility] IDPA [facility] Care Teams Metal Engraver Relationship Specialty Start Date End Date Tiago Geiger MD PCP - General Family Medicine 01/03/19
--- OUTSIDE RECORDS SUMMARY | 2024-12-29 12:27 | XMS_ITS | Clinical Summary ---
Author Organization [facility] Address [address] [place] [address] Care Team Providers Care Wind Turbine Performance Engineer Name Role Phone Tiago Geiger MD Primary Care Provider Rao Bean MD Unavailable [phone] Source Comments [facility],non-owned Affiliates and Associated Physician Practices is amultiple site organization consisting of ambulatory clinics and hospital sitesin [place], [place] and [place]. This disclosure is being madepursuant to the Care Everywhere program and may not contain all information available regarding this patient. Last updated 18.[facility] [employer] Allergies Active Allergy Reactions Criticality Noted Date [...] on file Legal Sex Male 5:06 PM PIPELINER Gender Identity Not on file Sexual Orientation Not on file Plan of Treatment Upcoming Encounters Date Type Department Care Team (Late st Contact Info) Description 06/27/2025 1:15 PM PIPELINER Office Visit [facility] - Ophthalmology [facility] [place] [address] Rochelle Zepeda MD [address] [place] [address] [place] [address] Health Maintenance Due Date Last Done Comments [...] patient's age to complete this topic Insurance [facility] SELF PAY NO INSURANCE Member Subscriber Plan / Payer (Ef fective for All Dates) Name:Rayna Arguelles Member ID:Not on file Relation to Subscriber:Not on file Name:RAYNA ARGUELLES Subscriber ID:Not on file (Home) Address: [address] [place] [phone] Payer ID:Not on file Group ID:Not on file Type:Self Pay Address: [place], [place] [facility] SELF PAY NO INSURANCE Member Subscriber Plan / Payer (Ef fective for All Dates) Name:Rayna Arguelles Member ID:Not on file Relation to Subscriber:Not on file Name:BLANERAYNA Subscriber ID:Not on file (Home) Address: [address] [place] [phone] Payer ID:Not on file Group ID:Not on file Type:Self Pay Address: [place], [place] [facility] SELF PAY NO INSURANCE Member Subscriber Plan / Payer (Ef fective for All Dates) Name:Rayna Arguelles Member ID:Not on file Relation to Subscriber:Not on file Name:BLANERAYNA Subscriber ID:Not on file (Home) Address: [address] [place] [phone] Payer ID:Not on file Group ID:Not on file Type:Self Pay Address: [place], [place] Care Teams Wind Turbine Performance Engineer Relationship Specialty Start Date End Date Tiago Geiger MD [address] [place] [address] PCP - General 10/20/17 Rao Bean MD [address] [place] [address] Equipment Analyst Hospitalist 06/11/20
[2025-01-02 06:07] LABS: Calprotectin, Fecal <5 ug/g (0-120)
== END 2024-12-29 12:26 | disposition home or self-care (01) ==
LOC: ANHLAB 12:25
PROVIDERS: PCP Family Medicine; Visit Provider Internal Medicine Gastroenterology
DX: K51.80 Other ulcerative colitis without complications (principal)
CPT/HCPCS: 83993

== ENCOUNTER 2025-03-21 08:19 | Outpatient (CLI) | payer OTHER, SELFPAY ==
--- OUTSIDE RECORDS SUMMARY | 2025-03-21 08:32 | XMS_ITS | Clinical Summary ---
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 [place] [address] [facility] Care Teams Building Services Engineer Relationship Specialty Start Date End Date Tiago Geiger MD PCP - General Family Medicine 01/03/19
--- OUTSIDE RECORDS SUMMARY | 2025-03-21 08:32 | XMS_ITS | Encounter Summary ---
Author Organization [facility] Address [address] [facility] [place] [address] Care Team Providers Care Nuclear Medicine Pet Ct Technologist Name Role Phone Tiago Geiger MD Primary Care Provider Rao Bean MD Unavailable [phone] Encounter Details Date Type Department Care Team (Late Contact Info) Description 07/12/2019 Lab Requisition [facility] [address] [place] [phone] Tiago Geiger MD [address] [place] [address] Social History Tobacco Use Types Packs/Day Years Used Date Smoking Tobacco: Never Assessed Sex and Gender Information Value Date Recorded Sex Assigned at Not on file Legal Sex Male 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 Gender Identity Not on file Sexual Orientation Not on file documented as of this encounter Plan of Treatment Upcoming Encounters Date Type Department Care Team (Late Contact Info) Description 06/27/2025 1:15 PM SOLIDWORKS 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 Office Visit [facility] - Ophthalmology [address] [place] [phone] Rochelle Zepeda MD [address] [place] [address] [place] [address] documented as of this encounter Procedures Procedure Name Priority Date/Time Associated Diagnosis Comments DERMATOPATHOLOGY Routine 07/11/2019 12:0 0 AM SOLIDWORKS 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 documented in this encounter Results * DERMATOPATHOLOGY (07/11/2019 12:00 AM SOLIDWORKS 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) Case Report Dermatopathology Report Case: [id number] Authorizing Provider: Tiago Geiger MD Collected: 07/11/2019 12:00 AM Ordering Location: [facility] Derm[facility] Lab Received: 07/12/2019 01:49 PM Pathologist: Dawit Alexis MD Specimen: Skin, right shoulder 0 5:00 PM [facility] [place] DERMATOPATHOLOGY LABORATORY Final Diagnosis Specimen A. SKIN, right shoulder: EPIDERMOID CYST, FRAGMENTS OF (L72.0) PRESENT AT MARGIN 0 5:00 PM [facility] [place] DERMATOPATHOLOGY LABORATORY at 1700 SOLIDWORKS 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 Clinical History Changing lesion. Check margins. 0 5:00 PM [facility] [place] DERMATOPATHOLOGY LABORATORY Gross Description Specimen A: Received is one formalin filled container labeled with the patients name and designated right shoulder. The specimen (2 pieces) consists of a [id number], [id number] excision of skin. The margin is inked green. The specimen is bisected lengthwise and submitted in 1 cassette. Jar 0+. 0 5:00 PM [facility] [place] DERMATOPATHOLOGY LABORATORY Microscopic Description Specimen A. SKIN, right shoulder: Sections show multiple portions of epithelium with a granular layer. There are also portions of keratin, predominantly in a basket-woven configuration. This lesion is present at the margin of the specimen. 0 5:00 PM [facility] [place] DERMATOPATHOLOGY LABORATORY Disclaimer An external and internal positive and negative controls are appropriate for the histochemical, immunohistochemical and immunofluorescence stain(s) in this case (if any), except where stated explicitly. The performance characteristics of the stain(s) cited in this report were developed and its performance characteristic determined by the Dermatopathology Laboratory at [facility], directed by Dr. Curtis Alexis. These tests need not be, and therefore are not, approved by the [place] Food and Drug Administration. The tests are used for clinical purposes. Billing Codes Specimen Charges Stain Charges 34588 1 0 5:00 PM [facility] [place] DERMATOPATHOLOGY LABORATORY Embedded Images 0 5:00 PM SOLIDWORKS 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 DERMATOPATHOLOGY LABORATORY Pathology/Cytolog y TISSUE SPECIMEN FROM SKIN / Unknown 07/11/2019 07/12/2019 1:49 PM SOLIDWORKS 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 Tiago Geiger MD LAB - PATHOLOGY/CYTOLOGY ORDE GLENN Final Result DERMATOPATHOLOGY LABORATORY [facility] - Department of Dermatology [address] [place] [address] 5th Floor Lab [address] [phone] documented in this encounter Visit Diagnoses Not on filedocumented in this encounter Care Teams Nuclear Medicine Pet Ct Technologist Relationship Specialty Start Date End Date Tiago Geiger MD [address] [place] [address] PCP - General 10/20/17 Rao Bean MD [address] [place] [address] African History Professor Hospitalist 06/11/20 documented as of this encounter
--- OUTSIDE RECORDS SUMMARY | 2025-03-21 08:32 | XMS_ITS | Clinical Summary ---
Author Organization [facility] Address [address] [place] [address] Care Team Providers Care Charge Operator Name Role Phone Tiago Geiger MD Primary Care Provider [phone] Rao Bean MD Unavailable [phone] Source Comments [facility],non-owned Affiliates and Associated Physician Practices is amultiple site organization consisting of ambulatory clinics and hospital sitesin [place], [place], [place] and [place]. This disclosure is being madepursuant to the Care Everywhere program and may not contain all information available regarding this patient. Last updated 18.[facility] Allergies Active Allergy Reactions Criticality Noted Date [...] on file Legal Sex Male 5:06 PM RETORT KILN BURNER Gender Identity Not on file Sexual Orientation Not on file Plan of Treatment Upcoming Encounters Date Type Department Care Team (Late st Contact Info) Description 06/27/2025 1:15 PM RETORT KILN BURNER Office Visit [facility] - Ophthalmology [facility] [place] [phone] Rochelle Zepeda MD [address] [place] [address] [place] [id number] Health Maintenance Due Date Last Done Comments [...] EXAM WITH MONOFILAMENT 11/29/2023 DIABETES-HGB A1C 11/29/2023 DIABETES - URINE PROTEIN SCREENING 06/07/2024 ZOSTER VACCINE (1 of 2) 2024 COVID-19 VACCINE (1 - 2023- season) 2025 INFLUENZA VACCINE (#1) 2025 05/18/2019, 2013 DIABETES [...] patient's age to complete this topic Insurance [facility] SELF PAY NO INSURANCE Member Subscriber Plan / Payer (Ef fective for All Dates) Name:Rayna Arguelles Member ID:Not on file Relation to Subscriber:Not on file Name:RAYNA ARGUELLES Subscriber ID:Not on file (Home) Address: [address] [place] [phone] Payer ID:Not on file Group ID:Not on file Type:Self Pay Address: [place], [place] [facility] SELF PAY NO INSURANCE Member Subscriber Plan / Payer (Ef fective for All Dates) Name:Rayna Arguelles Member ID:Not on file Relation to Subscriber:Not on file Name:BLANERAYNA Subscriber ID:Not on file (Home) Address: [address] [place] [phone] Payer ID:Not on file Group ID:Not on file Type:Self Pay Address: [place], [place] [facility] SELF PAY NO INSURANCE Member Subscriber Plan / Payer (Ef fective for All Dates) Name:Rayna Arguelles Member ID:Not on file Relation to Subscriber:Not on file Name:BLANERAYNA Subscriber ID:Not on file (Home) Address: [address] [place] [phone] Payer ID:Not on file Group ID:Not on file Type:Self Pay Address: [place], [place] Care Teams Charge Operator Relationship Specialty Start Date End Date Tiago Geiger MD [address] [place] [address] PCP - General 10/20/17 Rao Bean MD [address] [place] [address] Environmental Research Scientist Hospitalist 06/11/20
[2025-03-21 08:51] LABS: Hematocrit 47.7 % (42.0-52.0); Hemoglobin 15.8 g/dL (14.0-18.0); Mean Corpuscular HGB Conc 33.1 g/dl (32-36); Mean Corpuscular Hemoglobin 30.7 pg (26-34); Mean Corpuscular Volume 92.8 fl (80-100); Platelet Count Result 254 k/mm3 (150-375); Red Blood Count 5.14 M/mm3 (4.6-6.20); White Blood Count 8.7 K/mm3 (4.5-10.0)
[2025-03-21 09:20] LABS: Alanine Aminotransferase 26 U/L (6-50); Albumin Level 4.2 g/dL (3.5-5.1); Alkaline Phosphatase 77 U/L (38-126); Anion Gap 10 mmol/L (4-12); Aspartate Amino Transferase 31 U/L (17-59); Bilirubin,Total 0.6 mg/dL (0.2-1.3); Blood Urea Nitrogen 15 mg/dL (9-20); Calcium 8.8 mg/dL (8.4-10.2); Carbon Dioxide 33 mmol/L (22-30); Chloride 94 mmol/L (98-107); Cholesterol 208 mg/dL (0-200); Estimated Glomerular Filt Rate > 60; Glucose 110 mg/dL (65-110); HDL Direct 39 mg/dL; Potassium 3.3 mmol/L (3.4-5.0); Sodium 137 mmol/L (137-145); Total Protein 7.4 g/dL (6.3-8.2); Triglycerides 111 mg/dL (<150)
[2025-03-21 09:35] LABS: MALB Creatinine Ratio < 3.1 mg/g (0-30)
[2025-03-21 09:56] LABS: Prostate Specific Antigen 1.8 ng/mL (< OR = 4.0)
[2025-03-21 11:35] LABS: Hemoglobin A1C 5.3 % (<5.7)
== END 2025-03-21 08:20 | disposition home or self-care (01) ==
LOC: ANHLAB 08:19
PROVIDERS: PCP Family Medicine; Visit Provider Family Medicine
DX: Z12.5 Encounter for screening for malignant neoplasm of prostate (principal); E11.9 Type 2 diabetes mellitus without complications; E55.9 Vitamin D deficiency, unspecified; I50.32 Chronic diastolic (congestive) heart failure; Z13.220 Encounter for screening for lipoid disorders
CPT/HCPCS: 36415; 80053; 80061; 82043; 82306; 83036; 84153; 85027; G0103